=== PATIENT | female | born 1990 | race Caucasian/White ===

== ENCOUNTER → 2019-09-24 | Outpatient (REF) | payer OTHER ==
[2019-09-24 14:51] LABS: HEMATOCRIT 32.5 % (36.0-47.0); HEMOGLOBIN 9.5 g/dl (12.0-15.5); MEAN CORPUSCULAR HEMOGLOBIN 20.5 pg (27.0-33.0); MEAN CORPUSCULAR HGB CONC 29.2 g/dl (32.0-36.5); PLATELET COUNT, AUTOMATED 430 10^3/uL (150-450); RED BLOOD COUNT 4.64 10^6/uL (4.00-5.40); WHITE BLOOD COUNT 9.6 10^3/uL (4.0-10.0)
[2019-09-24 15:22] LABS: HEMOGLOBIN A1c 5.9 %
[2019-09-24 15:47] LABS: CHLAMYDIA DNA AMPLIFICATION NEGATIVE (NEGATIVE); GC DNA AMPLIFICATION NEGATIVE (NEGATIVE)
[2019-09-25 09:11] LABS: HEPATITIS B SURFACE ANTIGEN NEGATIVE (NEGATIVE); HEPATITIS C VIRUS ABY INDEX 0.1 INDEX (<0.8); HIV 1&2 SCREEN CENTAUR NEGATIVE (NEGATIVE); RUBELLA IgG QUALITATIVE IMMUNE (IMMUNE)
== END ==
LOC: M PLALAB 10:22
PROVIDERS: ATTEND Obstetrics & Gynecology
DX: O24.111 Pre-existing type 2 diabetes mellitus, in pregnancy, first trimester (principal)

== ENCOUNTER → 2019-12-11 | Outpatient (CLI) | payer OTHER ==
--- NOTE | 2019-12-11 16:39 | REP ---
REASON: anatomy. Multiple ultrasonographic images of the gravid uterus show a single living intrauterine gestation in the transverse head to the maternal left position. Doppler interrogation of the heart shows a heart rate of 152 beats per minute. The placenta is anterior and not low lying. The subjective amniotic fluid volume inner is within normal limits. The cervix measures 3.5 cm in length and is closed. Evaluation of the maternal adnexal spaces showed no abnormalities. Note was made in the left anterior uterus of a 6.6 x 5.8 x 7.4 cm sized somewhat heterogeneous solid nodule suspected of being a uterine fibroid. BPD 4.1 cm = 18 weeks 2 days HC 15.4 cm = 18 weeks 3 days AC 13.5 cm = 18 weeks 2 days FL 3.0 cm = 19 weeks 1 day The estimated weight is 255 grams, which is at the 27th percentile for a 96-linh-6-day gestational age. The anatomical structures seen as unremarkable are as follows: Thalami, cavum septum pellucidum, cerebellum, cisterna magna, upper lip, four-chamber heart, left-ventricular outflow tract, stomach, kidneys, urinary bladder, spine, upper and lower extremities. The three-vessel umbilical cord, cord insertion and right ventricular outflow tract were not optimally visualized. IMPRESSION: Signal living intrauterine gestation as described above with an estimated gestational age of 18 weeks 3 days via composite criteria and an estimated date of delivery of 05/10/2020 by today's exam. No anomalies were detected, however, I recommend a followup examination to better visualize those anatomical structures not well seen today and to re-evaluate the suspected uterine fibroid, which is close to the cord insertion on the placental side.
== END ==
LOC: M WHC 13:20
PROVIDERS: ATTEND Specialist
DX: O24.012 Pre-existing type 1 diabetes mellitus, in pregnancy, second trimester (principal); O32.2XX0 Maternal care for transverse and oblique lie, not applicable or unspecified; Z3A.18 18 weeks gestation of pregnancy

== ENCOUNTER 2019-12-29 18:15 | Emergency (ER) | payer OTHER ==
[~2019-12-29] VITALS: Ht 170.2 cm; Wt 95.2 kg
[2019-12-29 18:15] VITALS: BP 117/74
[2019-12-29] MEDS ORDERED: NOVOINJ12 SC (18:26)
[2019-12-29] MEDS ORDERED: INSUN SC (18:26)
[2019-12-29] MEDS ORDERED: ASPI81TA86 PO (18:26)
[2019-12-29] MEDS ORDERED: PROM25TA12 PO (18:26)
[2019-12-29] MEDS ORDERED: PREN29TA4 PO (18:26)
[2019-12-29] MEDS ORDERED: AMOX875T PO (19:20)
== END 2019-12-29 19:26 | disposition home or self-care (01) ==
LOC: M ED 18:15
DX: H66.41 Suppurative otitis media, unspecified, right ear (principal)

== ENCOUNTER 2020-01-05 20:44 | Emergency (ER) | payer OTHER ==
[~2020-01-05] VITALS: Ht 170.2 cm; Wt 97.6 kg
[~2020-01-05 20:44] MED LIST: AMOX875T PO; ASPI81TA85 PO; INSUN SC; NOVOINJ12 SC; PREN29TA4 PO; PROM25TA12 PO
[2020-01-05 20:45] VITALS: BP 121/63
== END 2020-01-05 21:49 | disposition left against medical advice (07) ==
LOC: M ED 20:44
DX: Z53.21 Procedure and treatment not carried out due to patient leaving prior to being seen by health care provider (principal)

== ENCOUNTER → 2020-01-08 | Outpatient (CLI) | payer OTHER ==
[~2020-01-08] MED LIST changes: -ASPI81TA85 PO; +ASPI81TA86 PO; +HUMU70IN SC; +INSURSD SC; +NOVOINJ13 SC; +ZOFR4TAB16 PO
--- NOTE | 2020-01-08 15:40 | REP ---
REASON: Followup. COMPARISON: 12/11/2019 which failed to optimally visualize three-vessel cord, cord insertion, right ventricular outflow tract for which this examination was performed in followup. Multiple ultrasonographic images of the gravid uterus show a single living intrauterine gestation in a breech presentation. Doppler interrogation of the heart shows a heart rate of 142 beats per minute. The placenta is anterior and not low-lying. Subjective amniotic fluid volume is within normal limits. The cervix measures 4.2 cm in length and is closed. Evaluation of the maternal adnexal spaces show no abnormalities. Three-vessel umbilical cord, cord insertion, and right ventricular outflow tract were seen to be within normal limits today. BPD 5 cm = 21 weeks 1 day HC 20.6 cm = 22 weeks 5 days AC 18.0 cm = 22 weeks 6 days FL 3.0 cm = 22 weeks 5 days The estimated weight is 527 grams which is at the 27th percentile for a 85-nfoo-9-day gestational age. IMPRESSION: Single living intrauterine gestation as described above with an estimated gestational age of 22 weeks 2 days via composite criteria and estimated date of delivery of 05/11/2020 by today's exam. No anomalies were detected.
== END ==
LOC: M WHC 09:21
PROVIDERS: ATTEND Obstetrics & Gynecology
DX: Z34.82 Encounter for supervision of other normal pregnancy, second trimester (principal); Z3A.22 22 weeks gestation of pregnancy

== ENCOUNTER → 2020-01-25 | Outpatient (REF) | payer OTHER ==
[2020-02-21 20:25] LABS: HEMATOCRIT 27.6 % (36.0-47.0); HEMOGLOBIN 8.1 g/dl (12.0-15.5); MEAN CORPUSCULAR HEMOGLOBIN 21.4 pg (27.0-33.0); MEAN CORPUSCULAR HGB CONC 29.3 g/dl (32.0-36.5); PLATELET COUNT, AUTOMATED 442 10^3/uL (150-450); RED BLOOD COUNT 3.78 10^6/uL (4.00-5.40); WHITE BLOOD COUNT 9.2 10^3/uL (4.0-10.0)
[2020-03-07 12:00] LABS: HEMOGLOBIN A1c 6.1 %
== END ==
LOC: M SFHCWAGY 12:50
PROVIDERS: ATTEND Specialist
DX: Z34.80 Encounter for supervision of other normal pregnancy, unspecified trimester (principal); Z3A.00 Weeks of gestation of pregnancy not specified
CPT/HCPCS: 36415; 83036; 85027; 86850; 86900; 86901; G0463

== ENCOUNTER → 2020-02-19 | Outpatient (CLI) | payer OTHER ==
[2020-02-19 18:06] LABS: HEMOGLOBIN A1c 6.4 %
== END ==
LOC: M PLALAB 13:12
PROVIDERS: ATTEND Obstetrics & Gynecology
DX: O24.912 Unspecified diabetes mellitus in pregnancy, second trimester (principal)

== ENCOUNTER → 2020-02-23 | Outpatient (CLI) | payer OTHER ==
--- NOTE | 2020-03-22 08:16 | REP ---
LIMITED OBSTETRICAL ULTRASOUND CLINICAL: Growth evaluation and biophysical profile. COMPARISON: 01/08/2020. FINDINGS: Ultrasound examination demonstrates a single live intrauterine in cephalic presentation. Placenta noted anteriorly and grade 2 without evidence for placenta previa or abruption. Amniotic fluid volume is upper limits of normal. HERMILO equals 17.7 cm. Cervix measures 3.3 cm in length and appears closed. Anterior intramural fibroid is identified measuring 7.4 x 7.1 x 8.6 cm. heart rate 144 beats per minute. Age by current biometrical measurements 28 weeks 5 days with estimated date of delivery 05/12/2020. Estimated weight 1234 grams (6th percentile). Biophysical profile score 8 out of 8. IMPRESSION: * Single live intrauterine in cephalic presentation. Biophysical profile score equals 8 out of 8. * Anterior intramural fibroid measuring 8.6 cm in maximal diameter. * Amniotic fluid volume is upper limits of normal. MTDD
== END ==
LOC: M WHC 13:02
PROVIDERS: ATTEND Obstetrics & Gynecology
DX: O24.419 Gestational diabetes mellitus in pregnancy, unspecified control (principal)

== ENCOUNTER → 2020-03-03 | Outpatient (CLI) | payer OTHER ==
--- NOTE | 2020-03-23 14:09 | REP ---
BIOPHYSICAL PROFILE ULTRASOUND CLINICAL: well being. TECHNIQUE: Transabdominal obstetrical ultrasound with color Doppler evaluation. FINDINGS: Ultrasound examination demonstrates a single live advanced gestation in cephalic presentation. motion was identified by technologist. Placenta is noted anteriorly and grade 1 without evidence for placenta previa or abruption. Amniotic fluid volume is normal. Cervix measures 4.1 cm in length and appears closed. heart rate 163 beats per minute. HERMILO 13.3 cm. Biophysical profile score equals 8 out of 8. Umbilical cord S/D ratio equal 2.44. IMPRESSION: * Single live intrauterine in cephalic presentation. Biophysical profile score equals 8 out of 8. Amniotic fluid volume is normal. * Anterior uterine fibroid is again noted and measures 9.8 x 9.6 x 7.3 cm. MTDD
== END ==
LOC: M WHC 13:10
PROVIDERS: ATTEND Specialist
DX: O24.119 Pre-existing type 2 diabetes mellitus, in pregnancy, unspecified trimester (principal); Z3A.00 Weeks of gestation of pregnancy not specified; O34.10 Maternal care for benign tumor of corpus uteri, unspecified trimester; D25.9 Leiomyoma of uterus, unspecified

== ENCOUNTER → 2020-03-08 | Outpatient (CLI) | payer OTHER ==
--- NOTE | 2020-03-23 14:11 | REP ---
LIMITED OBSTETRICAL ULTRASOUND FOR BIOPHYSICAL PROFILE AND WELLBEING COMPARISON: 03/03/2020 TECHNIQUE: Transabdominal obstetrical ultrasound with color Doppler evaluation. FINDINGS: Ultrasound examination demonstrates single live advanced gestation in cephalic presentation. motion was identified by the technologist. Placenta is noted anteriorly and grade 2 without evidence for placenta previa or abruption. Amniotic fluid volume is normal. Cervix measures 4.3 cm in length. Gestational age by last menstrual period (LMP) 31 weeks 6 days with estimated date of delivery 05/04/2020. Gestational age by current measurements 31 weeks 2 days with estimated date of delivery 05/08/2020. heart rate equals 147 beats per minute. Estimated weight 1756 grams (39th percentile). Biophysical profile score equals 8/8. Amniotic fluid index (HERMILO) equals 16.6 cm (8.7 23.9). Umbilical artery one S/D ratio equals 4.07 (1.88 3.94) Umbilical artery two S/D ratio 5.04 (1.88 3.94). IMPRESSION: * Single live advanced gestation in cephalic presentation demonstrating appropriate estimated weight and growth. * Biophysical profile score is normal. Amniotic fluid volume is normal. * Umbilical cord S/D ratios moderately elevated. MTDD
== END ==
LOC: M WHC 12:39
PROVIDERS: ATTEND Specialist
DX: O24.113 Pre-existing type 2 diabetes mellitus, in pregnancy, third trimester (principal); Z3A.31 31 weeks gestation of pregnancy

== ENCOUNTER → 2020-03-15 | Outpatient (CLI) | payer OTHER ==
--- NOTE | 2020-03-23 14:13 | REP ---
BIOPHYSICAL PROFILE CLINICAL: wellbeing. COMPARISON: 03/08/2020. TECHNIQUE: Real-time ultrasound examination using curved array transducer with color Doppler evaluation. FINDINGS: Ultrasound examination demonstrates a single live advanced gestation in cephalic presentation. motion identified by the technologist. Placenta is noted anteriorly and grade 2 without evidence for placenta previa or abruption. Amniotic fluid volume is normal, amniotic fluid index (HERMILO) equals 14.3 cm. Cervix measures 3.2 cm in length and appears closed. Gestational age by first ultrasound 32 weeks 2 days with estimated date of delivery 05/08/2020. heart rate 133 beats per minute. Biophysical profile score 8/8. Umbilical cord S/D ratio 2.8. IMPRESSION: Single live advanced gestation in cephalic presentation. Biophysical profile score equals 8/8. Amniotic fluid volume is normal. MTDD
== END ==
LOC: M WHC 12:40
PROVIDERS: ATTEND Specialist
DX: O24.113 Pre-existing type 2 diabetes mellitus, in pregnancy, third trimester (principal); Z3A.32 32 weeks gestation of pregnancy

== ENCOUNTER 2020-03-21 08:05 | Outpatient (CLI) | payer OTHER ==
[~2020-03-21] VITALS: Ht 170.2 cm; Wt 102.3 kg
[~2020-03-21 08:05] MED LIST changes: -HUMU70IN SC; -INSURSD SC; -NOVOINJ13 SC; -ZOFR4TAB16 PO
[2020-03-21] MEDS ORDERED: HUMU70IN SC (08:31)
[2020-03-21] MEDS ORDERED: ZOFR4TAB16 PO (08:31)
[2020-03-21] MEDS ORDERED: INSURSD SC (08:31)
[2020-03-21] MEDS ORDERED: HumuLIN R (REGULAR) INSULIN (NovoLIN R) **100U/ML** PER UNIT SC ONE (09:15)
[2020-03-21] MEDS ORDERED: HumuLIN N INSULIN (NovoLIN N) PER UNIT SC ONE (09:15)
[2020-03-21] MEDS ORDERED: NOVOINJ13 SC (09:25)
[2020-03-21 10:17] LABS: APPEARANCE, URINE CLOUDY (CLEAR); BACTERIA, URINE AUTO 1+ (NEGATIVE); BILIRUBIN, URINE AUTO NEGATIVE (NEGATIVE); BLOOD, URINE BLOOD NEGATIVE (NEGATIVE); COLOR, URINE YELLOW (YELLOW); GLUCOSE, URINE (UA) AUTO NEGATIVE (NEGATIVE); KETONE, URINE AUTO NEGATIVE (NEGATIVE); LEUKOCYTE ESTERASE, URINE AUTO NEGATIVE (NEGATIVE); MUCUS, URINE SMALL (NEGATIVE); NITRITE, URINE AUTO NEGATIVE (NEGATIVE); PROTEIN, URINE AUTO NEGATIVE (NEGATIVE); RBC, URINE AUTO 1 /HPF (0-3); SPECIFIC GRAVITY URINE AUTO 1.012 (1.002-1.035); SQUAMOUS EPITHELIAL CELL UR AU 38 /HPF (0-6); UROBILINOGEN, URINE AUTO 0.2 mg/dL (0.0-2.0); WBC, URINE AUTO 1 /HPF (0-3)
--- NOTE | 2020-03-21 12:20 | IPNPDOC ---
Text Note Date of Service The patient was seen on 03/21/20. NOTE Subjective: Roberta is a 29-year-old female who is a /0//4 at 34.5 weeks gestation with an MILKA of 04/27/20. There is no record to review. She has been a patient of [facility]. Her has been complicated by Pregestational diabetes controlled with insulin. She presented to L&D today with complaints of contractions that were every 2 minutes at home. She reported that they have decreased in frequency since she has been in L&D but when she does feel them they are uncomfortable but are less uncomfortable compared to this morning. She did not eat breakfast this morning or take her morning insulin. She reports active movement. She denies leaking of fluid or vaginal bleeding. OB history: 04/27/13: at 41.4 weeks gestation of male weighting 9 lbs 10 oz complicated by a hemorrhage with a blood transfusion 07/15/14: of female at 39.1 weeks gestation weighting 9 lbs 2 oz complicated by A1GDM 08/03/16: of female at 39.1 weeks gestation weighting 7 lbs 11 oz-no complications 01/18/18: of male at 37 weeks gestation weighting 8 lbs 9 oz-A2GDM insulin dependent Medical history: Type I diabetes: insulin controlled Surgical history: wisdom teeth Family history: cancer (melanoma) Social history: , former smoker-quit with this , denies alcohol or drug use during , history of chlamydia (2010) and history of abnormal pap in 2011 Objective: VS and labs: see below. FHR: 130, moderate variability, positive accelerations, no decelerations. Contractions 6-13 minutes. SVE: FT/thick/high, no show, anterior, soft. No change to cervical exam after 2+ hours. A+O x3. Respiratory: regular rate and no use of accessory muscles. Abdomen: Gravid, some contractions palpate mild and abdomen is soft between. Cephalic presentation not ed with SVE. Assessment: IUP at 34.5 weeks gestation, Type I DM on insulin, not in active labor, Category I FHR tracing Plan: Patient discharged to home. Reviewed access to care, kick count, labor signs, and danger signs to report. She is to come to appointment that is scheduled tomorrow with her BPP and growth. She is to call with any changes. VS,Fishbone, I+O VS, Fishbone, I+O Vital signs: BP: 114/76; HR: 95; RR: 18; Temperature: 97.5 Fasting blood sugar: 90 Item Value Date Time Urine Color YELLOW 03/21/20954 Urine Appearance CLOUDY H 03/21/20954 Urine pH 7.0 UNITS 03/21/20954 Urine Specific [place] 1.012 03/21/20 09 Urine Protein NEGATIVE mg/dL 03/21/20954 Urine Glucose (Auto)(UA) NEGATIVE mg/dL 03/21/20954 Urine Ketones (Auto) NEGATIVE mg/dL 03/21/20954 Urine Blood NEGATIVE 03/21/20954 Urine Nitrite NEGATIVE 03/21/20954 Urine Bilirubin NEGATIVE 03/21/20954 Urine Urobilinogen 0.2 mg/dL 03/21/20954 Urine Leukocyte Esterase (Auto) NEGATIVE 03/21/20954 Urine WBC (Auto) 1 /HPF 03/21/20954 Urine RBC (Auto) 1 /HPF 03/21/20954 Urine Hyaline Casts (Auto) 0 /LPF 03/21/20 09 Urine Bacteria (Auto) 1+ H 03/21/20954 Urine Squamous Epithelial Cells 38 /HPF 03/21/20954 Urine Mucus (Auto) SMALL 03/21/20 0955 NAE LUNA CNM Mar 21, 2020 12:20
== END 2020-03-21 11:50 | disposition home or self-care (01) ==
LOC: M LDO 08:05
PROVIDERS: ATTEND Advanced Practice Midwife
DX: O24.013 Pre-existing type 1 diabetes mellitus, in pregnancy, third trimester (principal); O47.03 False labor before 37 completed weeks of gestation, third trimester; Z3A.34 34 weeks gestation of pregnancy
CPT/HCPCS: 59025; 81001; 96372; G0378; G0463

== ENCOUNTER → 2020-03-22 | Outpatient (CLI) | payer OTHER ==
[~2020-03-22] MED LIST changes: +HUMU70IN SC; +INSURSD SC; +NOVOINJ13 SC; +ZOFR4TAB16 PO
--- NOTE | 2020-03-30 11:44 | REP ---
OB ULTRASOUND BIOPHYSICAL PROFILE HISTORY: Diabetes. TECHNIQUE: Real-time sonographic evaluation of the gravid uterus is performed. FINDINGS: There is a single living intrauterine gestation. Estimated gestational age based on last menstrual period (LMP) is reportedly 34 weeks 6 days, estimated date of confinement (EDC) 04/27/2020, and based on first ultrasound 32 weeks 4 days estimated date of confinement (EDC) 05/13/2020. position is cephalic. Placenta is anterior and grade 2 with no previa or abruption. There is a mid placental cord insertion. heart rate 142 beats per minute. Amniotic fluid within normal limits. Amniotic fluid index (HERMILO) 14.2 is within normal range of 8.2 to 24.6. Biophysical profile score is 8/8. Cervix is closed and measures 3.6 cm in length. S/D ratio in the umbilical artery near the placental insertion is 2.3, mid aspect 2.5, and near the fetus 2.3. Note is again made of an anterior fibroid 7.9 x 6.9 x 9.2 cm. MTDD
== END ==
LOC: M WHC 12:59
PROVIDERS: ATTEND Specialist
DX: O24.119 Pre-existing type 2 diabetes mellitus, in pregnancy, unspecified trimester (principal)

== ENCOUNTER → 2020-03-30 | Outpatient (CLI) | payer OTHER ==
--- NOTE | 2020-04-04 15:12 | REP ---
OBSTETRIC SONOGRAPHY HISTORY: growth study. Biophysical profile cord Doppler. FINDINGS: Scanning through the gravid uterus demonstrates a single live intrauterine gestation in a cephalic lie. The placenta is anterior grade 2 without evidence of previa. Amniotic fluid is subjectively normal. Amniotic fluid index (HERMILO) is normal at 14.1 cm. heart rate is recorded at 133 beats per minute. Biophysical profile score is 8 out of a possible 8. S/D ratio in the umbilical cord artery by Doppler is normal at 3.26. Closed cervical length is 3.6 cm viewed transabdominally. An anterior fibroid is observed 10.4 cm in greatest diameter. Nuchal cord was visualized. BIOMETRY CHART: BPD 8.4 cm 33 weeks 5 days Head circumference 32.1 cm 36 weeks 1 day Abdominal circumference 32.2 cm 36 weeks 1 day Femur length 6.6 cm 34 weeks 0 days Humeral length 5.7 cm 32 weeks 6 days AC/HC ratio 1.00 Normal Cephalic index 0.71 Normal Estimated weight 2647 grams, 5 pounds 13 ounces, 69th percentile for 34 weeks 3 days. IMPRESSION: Viable single intrauterine gestation at 34 weeks 4 days by todays composite sonographic criteria. Expected gestational age estimate based on prior sonography is 33 weeks 5 days. Estimated date of delivery (MILKA) by prior sonography 05/13/2020. MTDD
== END ==
LOC: M WHC 12:29
PROVIDERS: ATTEND Specialist
DX: O24.113 Pre-existing type 2 diabetes mellitus, in pregnancy, third trimester (principal); Z3A.34 34 weeks gestation of pregnancy
CPT/HCPCS: 59025; 76815; 76818; 76820; G0463

== ENCOUNTER → 2020-03-31 | Outpatient (REF) | payer OTHER | LOC: M SFHCWAGY 13:31 | PROVIDERS: ATTEND Specialist | DX: Z34.83 Encounter for supervision of other normal pregnancy, third trimester (principal) ==

== ENCOUNTER 2020-04-03 12:59 | Outpatient (CLI) | payer OTHER ==
[~2020-04-03] VITALS: Ht 170.2 cm; Wt 103.6 kg
[2020-04-03 13:32] VITALS: BP 128/77
== END 2020-04-03 14:12 | disposition home or self-care (01) ==
LOC: M WHC 12:59 → M LDO 12:59
PROVIDERS: ATTEND Specialist
DX: O47.03 False labor before 37 completed weeks of gestation, third trimester (principal); Z3A.36 36 weeks gestation of pregnancy
CPT/HCPCS: 59025; G0378; G0463

== ENCOUNTER → 2020-04-05 | Outpatient (CLI) | payer OTHER ==
--- NOTE | 2020-04-08 13:24 | REP ---
BIOPHYSICAL ULTRASOUND CLINICAL: wellbeing. TECHNIQUE: Transabdominal obstetrical ultrasound with color Doppler evaluation. FINDINGS: Ultrasound examination demonstrates a single live advanced gestation in cephalic presentation. motion identified by technologist. Placenta noted anteriorly and grade 2 without placenta previa or abruption. Amniotic fluid volume is normal (HERMILO equals 15.5 cm). Gestational age by first ultrasound 35 weeks 2 days with estimated date of delivery 05/08/2020. heart rate 136 beats per minute. Biophysical profile score 8 out of 8. Cervix measures 3.3 cm in length and appears closed. Anterior intramural fibroid again noted measuring 9.6 cm in maximal diameter. IMPRESSION: Biophysical profile score 8 out of 8. MTDD
== END ==
LOC: M WHC 12:35
PROVIDERS: ATTEND Specialist
DX: O24.113 Pre-existing type 2 diabetes mellitus, in pregnancy, third trimester (principal); Z3A.35 35 weeks gestation of pregnancy
CPT/HCPCS: 59025; 76818; 76820; G0463

== ENCOUNTER 2020-04-07 07:32 | Inpatient (IN) | payer OTHER ==
[2020-04-07] VITALS (56 sets, daily range): BP systolic 89–191; BP diastolic 51–114
[~2020-04-07] VITALS: Ht 170.2 cm; Wt 102.4 kg
[2020-04-07 08:58] LABS: HEMATOCRIT 25.4 % (36.0-47.0); HEMOGLOBIN 7.2 g/dl (12.0-15.5); MEAN CORPUSCULAR HGB CONC 28.3 g/dl (32.0-36.5); MEAN CORPUSCULAR VOLUME 67.2 fl (80.0-96.0); PLATELET COUNT, AUTOMATED 297 10^3/uL (150-450); RED BLOOD COUNT 3.78 10^6/uL (4.00-5.40); WHITE BLOOD COUNT 8.8 10^3/uL (4.0-10.0)
[2020-04-07] MEDS: miSOPROStol 50 MCG 1/2 TAB (S0191) SL SCH ×2 (09:01→13:34)
[2020-04-07 09:45] LABS: GLUCOSE,RANDOM 85 MG/DL (LESS THAN 200)
--- NOTE | 2020-04-07 10:15 | HPEPDOC ---
Obstetrical History & Physical General Date of Admission Apr 07, 2020 at 07:32 History of Present Illness 29 yo ,0,13,4 female at 37 1/7 weeks gestation by LMP c/w 7 weeks ultrasound (EDC=04/27/2020) presents for labor induction. The indication for delivery <39 weeks is Type II diabetes requiring insulin. She denies regular contractions or vaginal bleeding. Information Provided By: Patient Age: 29 : 17 Term: 4 Pre-term: 0 Abortions: 13 Livin Care Care: Good Care Dating Final EDC for Daily Update: Apr 27, 2020 Final EDC by: LMP, 1st trimester (US) Antepartum Course Diagnos(e)s type II diabetes Past Medical History Past Medical History Medical History x 4 h/o chlamydia, Trichomonas 2011 Family History Significant Family History: No pertinent family hx Social History Marital Status: Family situation: Spouse/partner home Psychosocial History: No pertinent psych hx * Smoker: non-smoker Alcohol: Denies Drugs: denies Abuse Violence Screening Have you been hit/kicked/slapp: No Have you been sexually assault: No Allergies Coded Allergies: No Known Allergies (Unverified , 03/21/20) Medications Scheduled Insulin Human Regular (Humulin R) 100 Unit/1 Ml Vial, 16 UNITS SC BID Insulin NPH Human Isophane (Novolin N) 100 Unit/1 Ml Vial, 22 UNITS SC BID Prenat 115/Iron Fum/Folic/Dss ( 19 Tablet) 1 Each Tablet, 1 TAB PO DAILY Physical Examination Physical Examination GENERAL: Alert and oriented times three. BREAST: . ABDOMEN: Gravid and non-tender to touch. FETUS: Is vertex (VTX) by sterile vaginal examination (SVE), fetus is vertex (VTX) by Bryn. HEART RATE: Regular rate and rhythm. LUNGS: Clear to auscultation (CTA). EXTREMITIES: No edema. No clonus. Deep tendon reflexes (DTRs) + . Vital Signs/I&O Vital Signs Date Time Temp Pulse Resp B/P (MAP) Pulse Ox O2 Delivery O2 Flow Rate FiO2 04/07/20 09:10 78 146/94 (111) 04/07/20 07:51 96.0 18 Laboratory Data 24H LABS Laboratory Tests 2 04/07/20 08:01: Serology Scanned Report Hepatitis B Testing 10/15/20 08:50: Nucleated Red Blood Cells % (auto) 0.0, Random Glucose 85 CBC/BMP Laboratory Tests 04/07/20 08:50 Pertinent Laboratoy Data HIV: Negative Hepatitis B: Negative Hepatitis C: Negative Rapid Plasma Reagin: Immune Rubella: Nonreactive Varicella: Nonreactive Group B Streptococcus: Negative Vaginal Examination Dilation: 2cm Effacement: 50% Station: -2 Cervical Consistency: Medium Cervical Position: Posterior Presentation: Cephalic presentation Assessment Variability: Moderate Accelerations: Positive Decelerations: None Tocometer Frequency: irregular Duration: less than 60 seconds Assessment/Plan Assessment 29 yo G17 P 4, 0, 13,4 at 37 1/7 weeks gestation presents for labor induction due to Type II diabetes Plan Admit and orient.. Group B Streptococcus (GBS) negative. Labs and intravenous (IV) per unit protocol. Counseled on Pitocin and induction of labor (IOL). Lactated Ringers (LR): Bolus mL, then at mL/hr. Anticipate [normal spontaneous delivery ()]. C-S as appropriate. Labor and Delivery Counseling 29 yo G17 P 4, 0, 13,4 at 37 1/7 weeks gestation presents for labor induction due to Type II diabetes TAVO REGAN MD Apr 07, 2020 10:15
[2020-04-07] MEDS: ACETAMINOPHEN 500 MG TAB PO PRN ×2 (13:35→19:59)
[2020-04-07] MEDS ORDERED: FENTANYL 2MCG/ML ROPIVACAINE 0.2% IN 0.9% NACL 100ML IVBAG As Ordered ONE (17:47)
[2020-04-07] MEDS ORDERED: EPIDURAL/PCA KEYS XX PRN (18:30)
[2020-04-07] MEDS ORDERED: LACTATED RINGER'S 1000 ML IV PRN (18:30)
[2020-04-07] MEDS ORDERED: NALOXONE INJ 0.4MG/1ML VIAL (J2310 PER 1MG) IV PRN (18:30)
[2020-04-07] MEDS ORDERED: FENTANYL/ROPIVACAINE/NACL BAG 100 ML EPIDURAL SCH (18:30)
[2020-04-07] MEDS ORDERED: ONDANSETRON 4MG/2ML VIAL IV PRN ×2 (18:30→21:30)
[2020-04-07] MEDS ORDERED: REFRIGERATOR IV KEYS XX PRN (18:30)
[2020-04-07] MEDS ORDERED: ePHEDrine SULFATE 25 MG/5 ML(5MG/ML) SYRINGE IV PRN (18:30)
[2020-04-07] MEDS ORDERED: EPIDURAL COMMENT XX SCH (18:30)
[2020-04-07] MEDS ORDERED: diphenhydrAMINE 50MG/ML VIAL (J1200) IV PRN (18:30)
[2020-04-07] MEDS ORDERED: OXYTOCIN 30 UNITS IN 0.9% NaCl 500ML IV BAG (J2590) As Ordered ONE (20:42)
[2020-04-07] MEDS ORDERED: METHYLERGONOVINE MALEATE 0.2 MG TAB PO PRN (21:30)
[2020-04-07] MEDS ORDERED: DOCUSATE SODIUM 100 MG CAP PO PRN (21:30)
[2020-04-07] MEDS ORDERED: ACETAMINOPHEN TAB 650MG DOSE (2X325MG) PO PRN (21:30)
[2020-04-07] MEDS ORDERED: MEASLES,MUMPS,RUBELLA VACCINE INJ (MMR-II) (90707) SC SCH (21:30)
[2020-04-07] MEDS ORDERED: OXYTOCIN DRIP 30 UNITS in IV 1 EA IV ONE (21:30)
[2020-04-07] MEDS ORDERED: IBUPROFEN 800 MG TAB PO PRN (21:30)
[2020-04-07] MEDS ORDERED: RHOGAM 300 MCG (1500 IU) INJ (J2790) IM SCH (21:30)
[2020-04-07] MEDS ORDERED: ACETAMINOPHEN 500 MG TAB PO PRN (21:30)
[2020-04-07] MEDS ORDERED: IBUPROFEN 600MG TAB PO PRN (21:30)
[2020-04-07] MEDS ORDERED: DIBUCAINE 1% OINTMENT 30GM TOP PRN (21:30)
--- NOTE | 2020-04-07 21:35 | DNPDOC ---
[facility] Delivery Note Delivery Note DATE OF DELIVERY: April 07, 2020 PREDELIVERY DIAGNOSIS: 37-1/7 weeks' gestation, Type II diabetes on insulin, induction POST DELIVERY DIAGNOSIS: Delivered. PROCEDURE: Spontaneous vaginal delivery PRESIDENT AND CHIEF OPERATING OFFICER: Dr. Tavo Regan MD ANESTHESIA: epidural. ESTIMATED BLOOD LOSS: 300 mL. FINDINGS: 5 pound 13 ounce female , Score 8/9, nuchal cord times 1 DELIVERY SUMMARY: Patient is a 29-year-old 18 now para 5-0-13-5 who was admitted to labor and delivery for induction. She received two doses of Misoprostol. After a short second stage of 5 minutes she had spontaneous vaginal delivery of a 5 lb 13 oz. female under epidural. Nuchal cord x 1 reduced manually. Shoulders delivered with ease. Placenta delivered spontaneously and appeared intact. No lacerations. Sponge count correct. TAVO REGAN MD Apr 07, 2020 21:35
[2020-04-07] MEDS ORDERED: NS 1,000 ML IV SCH ×2 (22:54→23:12)
[2020-04-07] MEDS ORDERED: miSOPROStol 200 MCG TAB (S0191) As Ordered ONE (23:11)
--- NOTE | 2020-04-07 23:21 | IPNPDOC ---
Progress Note Date of Service: Apr 07, 2020 Progress Note SUBJECT: Pt is a 29-year-old status post uncomplicated spontaneous vaginal delivery this evening. She began to pass small clots in the immediate post period. She felt light-headed. She felt nausea. her starting hemoglobin prior to delivery was 7.2 g/dl. OBJECTIVE: VITAL SIGNS: Within normal limits, afebrile. Alert and oriented times three, pale in appearance Breath sounds clear to auscultation. Heart rate: Regular rate and rhythm, no murmurs, rubs or gallops. Abdomen: Fundus firm at U-2. Soft, NTTP. Lower uterine segment expressed for numerous clots. ASSESSMENT: Post hemorrhage with anemia, both acute and chronic PLAN: Pt given Cytotec 800 mcg's per rectum Bolus IVF Pitocin IV Start blood transfusion (T+C for total of 4 units) VS, I&O, 24H, Fishbone Vital Signs/I&O Vital Signs Date Time Temp Pulse Resp B/P (MAP) Pulse Ox O2 Delivery O2 Flow Rate FiO2 04/07/20 22:06 87 125/81 (96) 04/07/20 21:22 97.6 04/07/20 16:23 20 04/07/20 16:23 Room Air Laboratory Data 24H LABS Laboratory Tests 2 04/07/20 08:01: Serology Scanned Report Hepatitis B Testing 04/07/20 08:50: Nucleated Red Blood Cells % (auto) 0.0, Random Glucose 85, Syphilis Serology NONREACTIVE CBC/BMP Laboratory Tests 04/07/20 08:50 TAVO REGAN MD Apr 07, 2020 23:21
[2020-04-08] VITALS (57 sets, daily range): BP systolic 77–174; BP diastolic 49–99
[2020-04-08] MEDS ORDERED: MORPHINE 4 MG/ML 1ML VIAL/SYRINGE (J2270) As Ordered ONE (02:34)
[2020-04-08] MEDS ORDERED: MORPHINE 4 MG/ML 1ML VIAL/SYRINGE (J2270) IV ONE (02:45)
[2020-04-08 03:04] LABS: HEMATOCRIT 28.6 % (36.0-47.0); HEMOGLOBIN 8.8 g/dl (12.0-15.5); MEAN CORPUSCULAR HEMOGLOBIN 23.4 pg (27.0-33.0); MEAN CORPUSCULAR HGB CONC 30.8 g/dl (32.0-36.5); MEAN CORPUSCULAR VOLUME 76.1 fl (80.0-96.0); PLATELET COUNT, AUTOMATED 284 10^3/uL (150-450); RED BLOOD COUNT 3.76 10^6/uL (4.00-5.40); WHITE BLOOD COUNT 14.5 10^3/uL (4.0-10.0)
[2020-04-08 03:17] LABS: INR 1.12; PARTIAL THROMBOPLASTIN TIME 26.4 SECONDS (24.2-38.5); PROTHROMBIN TIME 14.6 SECONDS (12.5-14.3)
[2020-04-08] MEDS ORDERED: ceFAZolin 2 GM/D5W 50 ML IV BAG (J0690 PER 500MG) As Ordered ONE (03:23)
[2020-04-08] MEDS ORDERED: fentaNYL 100 MCG/2 ML INJECTION (J3010) As Ordered ONE (03:36)
[2020-04-08] MEDS ORDERED: propofoL 200 MG/20 ML VIAL As Ordered ONE (03:36)
[2020-04-08] MEDS ORDERED: ROCURONIUM BROMIDE 50 MG/5 ML VIAL As Ordered ONE (03:36)
[2020-04-08] MEDS ORDERED: LIDOCAINE 2% 100MG/5ML SDV (FOR ANES.) As Ordered ONE (03:36)
[2020-04-08] MEDS ORDERED: MIDAZOLAM INJ 2MG/2ML VIAL (J2250 PER 1MG) As Ordered ONE (03:36)
[2020-04-08] MEDS ORDERED: dexameTHASONE 4 MG/ML 1ML VIAL (J1100 PER 1MG) As Ordered ONE (03:37)
[2020-04-08] MEDS ORDERED: PHENYLephrine HCL 500 MCG/5 ML (100MCG/ML) SYRINGE (J2370) As Ordered ONE (03:37)
[2020-04-08] MEDS ORDERED: ONDANSETRON 4MG/2ML VIAL As Ordered ONE (03:37)
[2020-04-08] MEDS ORDERED: ACETAMINOPHEN 1000MG 100ML IV BTL (OFIRMEV) (J0131 PER 10MG) As Ordered ONE (03:47)
[2020-04-08] MEDS ORDERED: SUGAMMADEX SODIUM 500 MG/5 ML VIAL (BRIDION) As Ordered ONE (03:49)
[2020-04-08] MEDS ORDERED: HYDROmorphone HCL 2 MG/ML 1ML VIAL (J1170) As Ordered ONE (04:02)
--- NOTE | 2020-04-08 04:21 | IPNPDOC ---
Progress Note Date of Service: Apr 08, 2020 Progress Note [address] Dr. Silverman intraoperatively for emergent assistance for hysterectomy due to hemorrhage with very large submucosal intracavitary fibroid. Please see Dr. Silverman's note for details of surgery. VS, I&O, 24H, Fishbone Vital Signs/I&O Vital Signs Date Time Temp Pulse Resp B/P (MAP) Pulse Ox O2 Delivery O2 Flow Rate FiO2 04/08/20 01:38 97.2 101 16 133/83 100 Room Air I&O- Last 24 Hours up to 6 AM 04/08/20 06:00 Intake Total 4000 ml Output Total 4658 ml Balance -658 ml Laboratory Data 24H LABS Laboratory Tests 2 04/07/20 08:01: Serology Scanned Report Hepatitis B Testing 04/07/20 08:50: Nucleated Red Blood Cells % (auto) 0.0, Random Glucose 85, Syphilis Serology NONREACTIVE 04/08/20 02:59: Nucleated Red Blood Cells % (auto) 0.0, Prothrombin Time 14.6H, Prothromb Time International Ratio 1.12, Activated Partial Thromboplast Time 26.4, Fibrinogen 428 CBC/BMP Laboratory Tests 04/07/20 08:50 04/08/20 02:59 PAULINE RAMIREZ DO Apr 08, 2020 04:21
[2020-04-08] MEDS ORDERED: METOCLOPRAMIDE INJ 10MG/2ML VIAL (J2765 PER 1) IV PRN (04:45)
[2020-04-08] MEDS ORDERED: fentaNYL 100 MCG/2 ML INJECTION (J3010) IV PRN (04:45)
[2020-04-08] MEDS ORDERED: ONDANSETRON 4MG/2ML VIAL IV PRN (04:45)
[2020-04-08] MEDS ORDERED: LR 1,000 ML IV SCH (04:45)
[2020-04-08] MEDS ORDERED: HYDROMORPHONE HCL 0.5 MG/ 0.5 ML SYRINGE (J1170 PER 1) IV PRN (04:45)
--- NOTE | 2020-04-08 04:57 | IPNPDOC ---
Progress Note Date of Service: Apr 08, 2020 Progress Note 29 yo s/p at 2104 on 04/07/2020 noted to have persistent vaginal bleeding. She pass clots with fundal massage. She previously received 4 units of PRBC's. Her estimated blood loss after the first episode of bleeding was 1090 ml. Her starting hemoglobin on admission was 7.2 g/dl. Her uterus has been firm the entire time. She received multiple uterotonic agents previously. I attempted to place a Bakri balloon at the bedside. Upon exam a firm mass was noted in the uterus. It was thought be be her known, large uterine fibroid. At that point, it was decided to proceed to the OR for surgical management. We asked for 4 more units of PRBC's to be prepared. Consent signed. Anesthesia notified. In addition to previous blood loss, she has lost an additional 6278-9763 ml of blood. VS, I&O, 24H, Fishbone Vital Signs/I&O Vital Signs Date Time Temp Pulse Resp B/P (MAP) Pulse Ox O2 Delivery O2 Flow Rate FiO2 04/08/20 04:39 92 18 117/81 (93) 94 Room Air 04/08/20 04:24 96.8 10 I&O- Last 24 Hours up to 6 AM 04/08/20 06:01 Intake Total 7200 ml Output Total 4658 ml Balance 2542 ml Laboratory Data 24H LABS Laboratory Tests 2 04/07/20 08:01: Serology Scanned Report Hepatitis B Testing 04/07/20 08:50: Nucleated Red Blood Cells % (auto) 0.0, Random Glucose 85, Syphilis Serology NONREACTIVE 04/08/20 02:59: Nucleated Red Blood Cells % (auto) 0.0, Prothrombin Time 14.6H, Prothromb Time International Ratio 1.12, Activated Partial Thromboplast Time 26.4, Fibrinogen 428 CBC/BMP Laboratory Tests 04/07/20 08:50 04/08/20 02:59 TAVO REGAN MD Apr 08, 2020 04:57
[2020-04-08] MEDS ORDERED: miSOPROStol 200 MCG TAB (S0191) As Ordered ONE ×2 (04:59→08:09)
[2020-04-08] MEDS ORDERED: KETOROLAC 30 MG/ML 1ML VIAL IV SCH (05:00)
--- NOTE | 2020-04-08 05:10 | ROOPDOC ---
[facility] Report Of Operation Report of Operation DATE OF PROCEDURE: 04/08/20 PREPROCEDURE DIAGNOSES: hemorrhage, intracavitary uterine fibroid. POSTPROCEDURE DIAGNOSES: same. PROCEDURE: Laparotomy, supracervical hysterectomy. SURGEON: Tavo Regan MD BIOLOGY ADJUNCT INSTRUCTOR: Chikis Victoria MD ANESTHESIA: GETA. ESTIMATED BLOOD LOSS: Approximately 500 mL. FLUIDS: 2 units of PRBC's, 1000 cc LR UO: 300 cc COMPLICATIONS: none. FINDINGS: 10 cm anterior intracavitary uterine fibroid. Normal fallopian tubes and ovaries. PROCEDURE NOTE: Pt was taken to the OR where General endotracheal anesthesia was induced. A Oro catheter was already in place. She was prepped and draped in a sterile fashion in the supine position. A Pfannenstiel skin incision was created with a scalpel. The fascia was incised, and the peritoneal cavity was entered. The uterus was exteriorized. The round ligaments were clamped, incised and suture ligated with O Vicryl. A bladder flap was created. A window was created in the broad ligament and both utero-ovarian ligaments were cross clamped with Sherman clamps. They were incised and suture ligated. The uterine vessels were clamped and incised. A scalpel was used to amputate the uterus at the level of the internal os. The cervical remnant was suture ligated in a running fashion with O-Vicryl. The pelvis was irrigated. Good hemostasis noted. The peritoneum was closed with O Vicryl. The Fascia was closed. The deep layer was closed with 2-O Chromic. The skin was closed with 3-0 Monocryl subcuticular sutures. An abdominal x-ray was performed which did not show any retained objects. The leny ent went to in stable condition. TAVO REGAN MD Apr 08, 2020 05:10
--- NOTE | 2020-04-08 05:49 | REPVR ---
PROCEDURE INFORMATION: Exam: XR Abdomen, 2 Views Exam date and time: 04/08/2020 5:17 AM Age: 29 years old Clinical indication: Screening exam; Other: Confirm absence of foreign body; Additional info: Confirm absence of foreign body-surgery without prior count TECHNIQUE: Imaging protocol: XR of the abdomen. Views: 2 Views. COMPARISON: No relevant prior studies available. FINDINGS: Gastrointestinal tract: Normal. No bowel dilation. Intraperitoneal space: Normal. No free air. Bones/joints: Unremarkable for age. Soft tissues: No radiopaque foreign bodies. IMPRESSION: No radiopaque foreign bodies. Electronically signed by: Luis Mahmood On 04/08/2020 05:49:48 AM
[2020-04-08 06:31] LABS: HEMATOCRIT 33.1 % (36.0-47.0); HEMOGLOBIN 10.6 g/dl (12.0-15.5); MEAN CORPUSCULAR HEMOGLOBIN 24.8 pg (27.0-33.0); MEAN CORPUSCULAR VOLUME 77.3 fl (80.0-96.0); PLATELET COUNT, AUTOMATED 382 10^3/uL (150-450); RED BLOOD COUNT 4.28 10^6/uL (4.00-5.40); WHITE BLOOD COUNT 23.7 10^3/uL (4.0-10.0)
[2020-04-08 07:16] LABS: ALBUMIN 1.4 GM/DL (3.2-5.2); ALT/SGPT 18 U/L (12-78); BILIRUBIN,TOTAL 0.3 MG/DL (0.2-1.0); BLOOD UREA NITROGEN 11 MG/DL (7-18); CALCIUM LEVEL 6.8 MG/DL (8.5-10.1); CARBON DIOXIDE LEVEL 19 MEQ/L (21-32); CHLORIDE LEVEL 107 MEQ/L (98-107); CREATININE FOR GFR 0.84 MG/DL (0.55-1.30); GLOMERULAR FILTRATION RATE > 60.0 (>60); GLUCOSE, FASTING 174 MG/DL (70-100); SODIUM LEVEL 134 MEQ/L (136-145); TOTAL PROTEIN 4.6 GM/DL (6.4-8.2)
[2020-04-08] MEDS ORDERED: DEXTROSE 50% 50 ML SYRINGE IV STA (07:40)
[2020-04-08] MEDS ORDERED: HumuLIN R (REGULAR) INSULIN (NovoLIN R) **100U/ML** PER UNIT IV STA (07:40)
[2020-04-08] MEDS ORDERED: FUROSEMIDE 40MG/4ML VIAL (J1940) IV ONE (07:45)
[2020-04-08] MEDS ORDERED: CALCIUM GLUCONATE 1,000 MG in D5W MINI-BAG PLUS 100 ML IV ONE ×3 (07:45→12:00)
--- NOTE | 2020-04-08 08:24 | IPNPDOC ---
Progress Note Date of Service: Apr 08, 2020 Progress Note Pt is s/p hysterectomy, along with a transfusion of 6 units of PRBC's. Her hemoglobin is stable at 10.6 g/dl. However, her Potassium is 7.0. Due to this critical value, plan transfer to ICU for further management. Will consult Medicine to administer Calcium Gluconate and Insulin to resolve hyperkalemia. VS, I&O, 24H, Fishbone Vital Signs/I&O Vital Signs Date Time Temp Pulse Resp B/P (MAP) Pulse Ox O2 Delivery O2 Flow Rate FiO2 04/08/20 07:29 97 83/49 (60) 04/08/20 07:16 18 04/08/20 07:16 95.9 100 04/08/20 04:54 Room Air 04/08/20 04:24 10 l I&O- Last 24 Hours up to 6 AM 04/08/20 06:00 Intake Total 7200 ml Output Total 4658 ml Balance 2542 ml Laboratory Data 24H LABS Laboratory Tests 2 04/07/20 08:50: Nucleated Red Blood Cells % (auto) 0.0, Random Glucose 85, Syphilis Serology NONREACTIVE 04/08/20 02:59: Nucleated Red Blood Cells % (auto) 0.0, Prothrombin Time 14.6H, Prothromb Time International Ratio 1.12, Activated Partial Thromboplast Time 26.4, Fibrinogen 428 04/08/20 06:24: Nucleated Red Blood Cells % (auto) 0.1H, Anion Gap 8, Glomerular Filtration Rate > 60.0, Calcium Level 6.8L, Total Bilirubin 0.3, Aspartate Amino Transf (AST/SGOT) 33, Alanine Aminotransferase (ALT/SGPT) 18, Alkaline Phosphatase 135H, Total Protein 4.6L, Albumin 1.4L, Albumin/Globulin Ratio 0.4L CBC/BMP Laboratory Tests 04/07/20 08:50 04/08/20 02:59 04/08/20 06:24 TAVO REGAN MD Apr 08, 2020 08:24
[2020-04-08] MEDS: PRENATAL VITAMINS CHEWABLE TABLET PO SCH (09:00)
[2020-04-08 09:21] LABS: HEMATOCRIT 25.5 % (36.0-47.0)
[2020-04-08 09:25] LABS: INR 1.14; PARTIAL THROMBOPLASTIN TIME 27.2 SECONDS (24.2-38.5); PROTHROMBIN TIME 14.8 SECONDS (12.5-14.3)
--- NOTE | 2020-04-08 10:03 | ECGEPIP ---
[facility] Test Date: 2020-04-08 Pat Name: PEACE VELASCO Department: Room: [place] [address] Gender: Female Clinical Material Handler: : 1990 Requested By: TAVO Osorio Order Number: [id number] Reading MD: Patricia Mccollum Measurements Intervals [place] Rate: 84 P: 52 AL: 125 QRS: 28 QRSD: 72 T: 31 QT: 356 QTc: 422 Interpretive Statements SINUS RHYTHM Electronically Signed on 04-08-2020 10:03:12 EDT by Patricia Mccollum
--- NOTE | 2020-04-08 10:13 | ECGEPIP ---
[facility] Test Date: 2020-04-08 Pat Name: PEACE VELASCO Department: Room: [place] [address] Gender: Female Cadd Technician: : 1990 Requested By: MG CARDOSO Order Number: [id number] Reading MD: Patricia Mccollum Measurements Intervals [place] Rate: 94 P: 53 [place]: 130 QRS: 20 QRSD: 73 T: 22 QT: 347 QTc: 435 Interpretive Statements SINUS RHYTHM normal C/W 04/08/20 NO CHANGE Electronically Signed on 04-08-2020 10:13:26 EDT by Patricia Mccollum
[2020-04-08 10:56] LABS: BLOOD UREA NITROGEN 10 MG/DL (7-18); CALCIUM LEVEL 6.7 MG/DL (8.5-10.1); CARBON DIOXIDE LEVEL 22 MEQ/L (21-32); CHLORIDE LEVEL 108 MEQ/L (98-107); CREATININE FOR GFR 0.74 MG/DL (0.55-1.30); GLOMERULAR FILTRATION RATE > 60.0 (>60); GLUCOSE, FASTING 153 MG/DL (70-100); POTASSIUM SERUM 4.3 MEQ/L (3.5-5.1); SODIUM LEVEL 138 MEQ/L (136-145)
[2020-04-08] MEDS: KETOROLAC 30 MG/ML 1ML VIAL IV PRN ×2 (10:57→22:34)
--- NOTE | 2020-04-08 11:48 | REPVR ---
PROCEDURE INFORMATION: Exam: XR Chest, 1 View Exam date and time: 04/08/2020 9:11 AM Age: 29 years old Clinical indication: Other vascular access device placement or adjustment; Central line, non-tunnelled; Additional info: Status post line placement TECHNIQUE: Imaging protocol: XR of the chest Views: 1 view. COMPARISON: No relevant prior studies available. FINDINGS: Tubes, catheters and devices: ECG leads/contacts overlie and partially obscure the anatomy. A right neck catheter is present with its tip projecting at the expected location of the right atrium. Lungs: Bilateral small lung volumes. The central pulmonary vasculature does not appear congested. Very mild right infrahilar linear airspace opacities consistent with atelectasis. Mild left infrahilar confluent airspace opacity, atelectasis versus consolidation. Pleural space: No evident pleural effusion. No evident pneumothorax on this supine positioned image. Heart/Mediastinum: Heart size is within normal limits given the portable technique. Bones/joints: No acute osseous abnormality. IMPRESSION: 1. A right neck catheter is present with its tip projecting at the expected location of the right atrium. No evident pneumothorax. 2. Bilateral small lung volumes. 3. Mild left lower lung airspace opacities, atelectasis versus consolidation. 4. Very mild right lower lung atelectasis. Electronically signed by: Liam Tierney On 04/08/2020 11:48:10 AM
--- NOTE | 2020-04-08 12:26 | IPNPDOC ---
Date Seen The patient was seen on 04/08/20. Progress Note Critical Care CONSULT: Patient is a 29-year-old female with a PMHx of diabetes who presented induction at 37 weeks gestation. After delivery patient was noted to have hemorrhage. Multiple uterotonic agents and the Bakri balloon were used to try to control the bleeding. Patient had on going blood loss and Dr. Silverman did a hysterectomy after palpating a uterine fibroid within the cavity of the uterus. Patient was transfused prior to surgery as well as during for a total of 6 units PRBC. After transfusion patient was hyperkalemic and transferred to ICU for monitoring. She was administered ceftriaxone intraoperatively and presented to the ICU with a barajas catheter already in place. In the ICU she was hypothermic and hypotensive requiring additional bolus of NS and dewey hugger. Intensive care has been consulted due to patient's hyperkalemia, hypothermic, and hypotensive state with poor peripheral access. Patient currently appears drowsy but is easily arousable and answering questions. She reports feeling fatigue and some dyspnea but denies any chest pain, no coughing or wheezing. She has some abdominal pain but reportedly mild and no nausea or vomiting. PAST MEDICAL HISTORY: 1. Type 1 DM/Gestational diabetes 2. History of previous chlamydia, Trichomonas infections PAST SURGICAL HISTORY: 1. [place] teeth extraction 2. D&C FAMILY HISTORY: Grandmother: colon cancer Grandfather: melanoma SOCIAL HISTORY: nonsmoker, occasional EtOH, denies recreational drug use OBJECTIVE PHYSICAL EXAMINATION: VITAL SIGNS: Please see below. GENERAL: Patient is pleasant and cooperative. She is conversational and in mild distress because she didn't know where she was at first. After learning that she was in the ICU, she was calm and cooperated during the CVC placement. HEENT: Oral mucosal membranes dry. CARDIOVASCULAR: Regular rate and rhythm, borderline tachycardia, pulse ranged from 105-110 RESPIRATORY: Diminished breath sounds. ABDOMINAL: Soft, tender in lower abdominal quadrants. Patient has a bandage from the hysterectomy scar. EXTREMITIES: No edema appreciated. NEUROLOGICAL: Alert and oriented. PSYCHOLOGICAL: Mildly distressed, status post surgical procedure (hysterectomy). LABORATORY DATA, IMAGING STUDIES, MICROBIOLOGY: Please see below. CXR: Poor inspiratory effort. RIJ central line in position. No pneumothorax. Atelectasis in left lung base, minimal atelectasis in right ASSESSMENT AND PLAN: This is a 29-year-old female with a hx of diabetes who had hemorrhage secondary to uterine fibroid and is s/p hysterectomy. Patient received 6 units PRBC and developed hyperkalemia and was transferred to ICU for monitoring. PROBLEMS: 1. Hypotension: hx hemorrhage, likely component hypovolemia, also possible sepsis with leukocytosis. Patient was given IVF with BP response, did not require pressors. - lactic acid mildly elevated, continue to trend - CXR showed evidence of atelectasis and poor inspiratory effort, no clear opacities. Barajas in place, will check UA. Will also check blood cultures for sepsis work up - cont with ceftriaxone for antibiotics, no hx or risk factors for drug resistant organisms. Will check MRSA screen and trend procalcitonin - central venous catheter placed for IV access - cont NS at 150ml/hr, monitor for hyponatremia and hyperchloremia. If patient is hypotensive consider albumin given hypoalbuminemia for volume rescusitation. 2. Post- hemorrhage- s/p 6 units PRBC - continue monitoring H/H and transfuse as needed if Hg less than 7. Given multiple transfusions coagulation panel with fibrinogen ordered to monitor for DIC and consumptive coagulopathy. if further PRBC needed consider transfusion with FFP also. if fibrinogen low (less 150) would give cryoprecipitate - hypocalemia in setting of PRBC transfusion. repeat ionized calcium low, will replete. - Hyperkalemia in setting of transfusion. Was given calcium, insulin/D50 and IVF. Potassium trending down, no arrythmia on telemetry. DC lasix as patient is intravascularly depleted. - DVT with SCDs. if no further evidence of bleeding and acceptable by OB would transition to lovenox as patient prothrombotic post 3. Hypoxia- appears to have improved. Evidence of atelectasis on CXR and low lung volumes. will give incentive spirometer DVT ppx SCDs Full code DISPOSITION: Consider transferring pt to PCU tomorrow if patient continues to improve today. VS, I&O, 24H, Fishbone Vital Signs/I&O Vital Signs Date Time Temp Pulse Resp B/P (MAP) Pulse Ox O2 Delivery O2 Flow Rate FiO2 04/08/20 07:29 97 83/49 (60) 04/08/20 07:16 18 04/08/20 07:16 95.9 100 04/08/20 04:54 Room Air 04/08/20 04:24 10 I&O- Last 24 Hours up to 6 AM 04/08/20 05:59 Intake Total 7200 ml Output Total 4658 ml Balance 2542 ml Laboratory Data 24H LABS Laboratory Tests 2 04/08/20 02:59: Nucleated Red Blood Cells % (auto) 0.0, Prothrombin Time 14.6H, Prothromb Time International Ratio 1.12, Activated Partial Thromboplast Time 26.4, Fibrinogen 428 04/08/20 06:24: Nucleated Red Blood Cells % (auto) 0.1H, Anion Gap 8, Glomerular Filtration Rate > 60.0, Calcium Level 6.8L, Total Bilirubin 0.3, Aspartate Amino Transf (AST/SGOT) 33, Alanine Aminotransferase (ALT/SGPT) 18, Alkaline Phosphatase 135H, Total Protein 4.6L, Albumin 1.4L, Albumin/Globulin Ratio 0.4L 04/08/20 08:39: Prothrombin Time 14.8H, Prothromb Time International Ratio 1.14, Activated Partial Thromboplast Time 27.2, Fibrinogen 290 04/08/20 09:50: 04/08/20 10:12: Anion Gap 8, Glomerular Filtration Rate > 60.0, Calcium Level 6.7L CBC/BMP Laboratory Tests 04/08/20 02:59 04/08/20 06:24 04/08/20 08:40 04/08/20 10:12 GME ATTESTATION GME ATTESTATION My faculty preceptor for this patient encounter was physically present during the encounter and was fully available. All aspects of the patient interview, examination, medical decision making process, and medical care plan development were reviewed and approved by the faculty preceptor. The faculty preceptor is aware and concurs with the plan as stated in the body of this note and will attest to such by his/her cosignature. ATTENDING NOTE I, Alta Gunn, conducted independent examination and history of the patient and agree with the plan as detailed above and discussed during rounds Total critical care time spent not including procedures approx 1 hour and 25 mins Jesse Garcia DO Apr 08, 2020 12:26 ALTA GUNN MD Apr 08, 2020 16:50
[2020-04-08] MEDS ORDERED: GLUCAGON INJ 1MG VIAL SC PRN (12:45)
[2020-04-08] MEDS ORDERED: GLUCOSE 4GM CHEW TABLET PO PRN (12:45)
[2020-04-08] MEDS ORDERED: DEXTROSE 50% 50 ML SYRINGE IV PRN (12:45)
[2020-04-08] MEDS ORDERED: NS 1,000 ML IV ONE (14:45)
[2020-04-08] MEDS: cefTRIAXone SOD 2 GM in D5W MINI-BAG PLUS 50 ML IV SCH (14:50)
[2020-04-08 14:59] LABS: BASO % 0.1 % (0.0-1.0); HEMATOCRIT 24.5 % (36.0-47.0); HEMOGLOBIN 7.7 g/dl (12.0-15.5); LYMPH % 13.6 % (24.0-44.0); MEAN CORPUSCULAR HEMOGLOBIN 24.6 pg (27.0-33.0); MEAN CORPUSCULAR HGB CONC 31.4 g/dl (32.0-36.5); MEAN CORPUSCULAR VOLUME 78.3 fl (80.0-96.0); MONO # 0.5 10^3/uL (0.0-0.8); MONO % 3.4 % (0.0-5.0); NEUTROPHILS % 82.5 % (36.0-66.0); RED BLOOD COUNT 3.13 10^6/uL (4.00-5.40); WHITE BLOOD COUNT 14.5 10^3/uL (4.0-10.0)
[2020-04-08 15:09] LABS: PLATELET COUNT, AUTOMATED 274 10^3/uL (150-450)
--- NOTE | 2020-04-08 15:17 | IPNPDOC ---
Progress Note Date of Service: Apr 08, 2020 Progress Note SUBJECT:Sleeping comfortable at present. Has had one dose of Toradol for pain. Tolerated regular diet today OBJECTIVE: VITAL SIGNS: Within normal limits, afebrile. Alert and oriented times three. Breath sounds clear to auscultation. Heart rate: Regular rate and rhythm, no murmurs, rubs or gallops. Abdomen: Soft, dressing intact [Minimal] lochia. ASSESSMENT: 29 yo S/p post hysterectomy for hemorrhage and large uterine fibroid Hb=7.7 g/dl K+=4.3 PLAN: Pt will likely need more PRBC's at some point Agree with fluid bolus Potassium normalized currently Appreciate Medicine/ICU care VS, I&O, [facility] Vital Signs/I&O Vital Signs Date Time Temp Pulse Resp B/P (MAP) Pulse Ox O2 Delivery O2 Flow Rate FiO2 04/08/20 07:29 97 83/49 (60) 04/08/20 07:16 18 04/08/20 07:16 95.9 100 04/08/20 04:54 Room Air 04/08/20 04:24 10 I&O- Last 24 Hours up to 6 AM 04/08/20 06:00 Intake Total 7200 ml Output Total 4658 ml Balance 2542 ml Laboratory Data 24H LABS Laboratory Tests 2 04/08/20 02:59: Nucleated Red Blood Cells % (auto) 0.0, Prothrombin Time 14.6H, Prothromb Time International Ratio 1.12, Activated Partial Thromboplast Time 26.4, Fibrinogen 428 04/08/20 06:24: Nucleated Red Blood Cells % (auto) 0.1H, Anion Gap 8, Glomerular Filtration Rate > 60.0, Calcium Level 6.8L, Total Bilirubin 0.3, Aspartate Amino Transf (AST/SGOT) 33, Alanine Aminotransferase (ALT/SGPT) 18, Alkaline Phosphatase 135H, Total Protein 4.6L, Albumin 1.4L, Albumin/Globulin Ratio 0.4L 04/08/20 08:39: Prothrombin Time 14.8H, Prothromb Time International Ratio 1.14, Activated Partial Thromboplast Time 27.2, Fibrinogen 290 04/08/20 09:50: Lactic Acid Level 2.1*H, Whole Blood Ionized Calcium 4.0L 04/08/20 10:12: Anion Gap 8, Glomerular Filtration Rate > 60.0, Calcium Level 6.7L, Methicillin- Resist S.aureus DNA PCR NOT DETECTED 04/08/20 12:59: Bedside Glucose (Misc Panel) 117H 04/08/20 14:42: Immature Granulocyte % (Auto) 0.4, Neutrophils (%) (Auto) 82.5H, Lymphocytes (%) (Auto) 13.6L, Monocytes (%) (Auto) 3.4, Eosinophils (%) (Auto) 0.0, Basophils (%) (Auto) 0.1, Neutrophils # (Auto) 12.0H, Lymphocytes # (Auto) 2.0, Monocytes # (Auto) 0.5, Eosinophils # (Auto) 0.0, Basophils # (Auto) 0.0, Nucleated Red Blood Cells % (auto) 0.0 CBC/BMP Laboratory Tests 04/08/20 02:59 04/08/20 06:24 04/08/20 08:40 04/08/20 10:12 04/08/20 14:42 Microbiology Microbiology 04/08/20 Blood Culture, Received Pending 04/08/20 Blood Culture, Received Pending TAVO REGAN MD Apr 08, 2020 15:17
[2020-04-08 15:32] LABS: ALBUMIN 1.3 GM/DL (3.2-5.2); ALT/SGPT 17 U/L (12-78); BILIRUBIN,TOTAL 0.1 MG/DL (0.2-1.0); BLOOD UREA NITROGEN 13 MG/DL (7-18); CALCIUM LEVEL 7.3 MG/DL (8.5-10.1); CARBON DIOXIDE LEVEL 21 MEQ/L (21-32); CHLORIDE LEVEL 106 MEQ/L (98-107); CREATININE FOR GFR 0.82 MG/DL (0.55-1.30); GLOMERULAR FILTRATION RATE > 60.0 (>60); GLUCOSE, FASTING 133 MG/DL (70-100); POTASSIUM SERUM 4.6 MEQ/L (3.5-5.1); SODIUM LEVEL 136 MEQ/L (136-145); TOTAL PROTEIN 4.1 GM/DL (6.4-8.2)
[2020-04-08] MEDS: NS 1,000 ML IV SCH (15:50)
--- NOTE | 2020-04-08 15:51 | CR.PDOC ---
General Date of Consultation: Apr 08, 2020 Referring Provider: TAVO REGAN MD Attending Physician: ROSALINDA BOND MD Consultation REASON FOR CONSULTATION/CHIEF COMPLAINT: hemorrhage s/p hysterectomy found to have hyperkalemia HISTORY OF PRESENT ILLNESS: Roberta Perez is a 29 YO G17, P4, 0, 13, 4 who presented at 37 1/7 weeks for labor induction. Delivery was complicated by hemorrhage requiring emergency hysterectomy. The patient received 5U pRBCs and this morning was found to have hyperkalemia at 7.0. There were no EKG changes. On my examination this morning, the patient denies any pain but states she feels tired. She denies any chest pain, shortness of breath, or abdominal pain other than soreness at the area where she had surgery. ALLERGIES: Please see below. HOME MEDICATIONS: Please see below. PAST MEDICAL HISTORY: 1. Type 1 DM/Gestational diabetes? 2. History of previous chlamydia, Trichomonas infections PAST SURGICAL HISTORY: 1. [place] teeth extraction 2. D&C FAMILY HISTORY: Grandmother: colon cancer Grandfather: melanoma SOCIAL HISTORY: nonsmoker, occasional EtOH, denies recreational drug use REVIEW OF SYSTEMS: Unable to obtain other than what is mentioned in HPI due to patient's sedation PHYSICAL EXAMINATION: VITAL SIGNS: see below GENERAL: in no apparent distress, somewhat sedated, using nonrebreather oxygen HEENT: PERRL, EOMI, Oral mucous membranes are moist without lesions. NECK: The patient has no noted JVD. No adenopathy is appreciated. No thyromegaly CHEST/LUNGS: Lungs are clear bilaterally without rhonchi, rales, or wheezes. There is no subcutaneous air appreciated. There is no tenderness to the chest wall. HEART:Regular rate and rhythm. No murmurs, rubs, or gallops are appreciated. Distal pulses are 2+. No carotid bruits appreciated. ABDOMEN: Protuberant, Soft, nontender, and nondistended. There is a surgical bandage in lower abdomen: Clean/dry/intact. Bowel sounds are positive. No organomegaly is appreciated. No masses are appreciated. There are no peritoneal signs. There is no [place] sign. EXTREMITIES: No peripheral edema. There is no focal long bone tenderness or deformity. SKIN: The patients skin is warm and dry, without rashes or lesions. PSYCHIATRIC: AAO x 3, normal mood/affect NEUROLOGIC: The patient has 5/5 strength to the upper and lower extremities bilaterally. Sensation is intact throughout. Deep tendon reflexes are 2+ in all four extremities. There are no deficits to the cranial nerves. LABORATORY DATA: Please see below. ASSESSMENT/PLAN: This is a 29-year-old female status post total hysterectomy for hemorrhage and large uterine fibroid. This morning she was found to be hyperkalemic with concern for sepsis with hypotension. # hemorrhage s/p hysterectomy: -s/p 5U pRBCs. H/H has slowly trended down to 7.7 post resuscitation. If it falls below 7 will give subsequent blood transfusions. Suspect this may have some hemodilutional component as well -Empiric Ceftriaxone -s/p IVF boluses x3, continue with maintenance fluids 150cc/hr -WBC stable around 14.5 -Lactic acid trended down from 2.1 to 1.7 -Patient hemodynamically stable for now. Will continue to give fluid boluses to maintain MAP >65 and add pressors if needed # Hyperkalemia: Patient was found to have potassium 7.0, no EKG changes -Status post calcium gluconate, insulin, D5 -Potassium has now improved to 4.3 #Type I DM vs Gestational DM? -SSI with hypoglycemic protocol -FSBS AC&HS -Consistent carbohydrate diet DVT ppx: TEDs/SCDs Vital Signs/I&O Vital Signs Date Time Temp Pulse Resp B/P (MAP) Pulse Ox O2 Delivery O2 Flow Rate FiO2 04/08/20 07:29 97 83/49 (60) 04/08/20 07:16 18 04/08/20 07:16 95.9 100 04/08/20 04:54 Room Air 04/08/20 04:24 10 I&O- Last 24 Hours up to 6 AM 04/08/20 06:00 Intake Total 7200 ml Output Total 4658 ml Balance 2542 ml Laboratory Data Labs 24H Laboratory Tests 2 04/08/20 02:59: Nucleated Red Blood Cells % (auto) 0.0, Prothrombin Time 14.6H, Prothromb Time I nternational Ratio 1.12, Activated Partial Thromboplast Time 26.4, Fibrinogen 428 04/08/20 06:24: Nucleated Red Blood Cells % (auto) 0.1H, Anion Gap 8, Glomerular Filtration Rate > 60.0, Calcium Level 6.8L, Total Bilirubin 0.3, Aspartate Amino Transf (AST/SGOT) 33, Alanine Aminotransferase (ALT/SGPT) 18, Alkaline Phosphatase 135H, Total Protein 4.6L, Albumin 1.4L, Albumin/Globulin Ratio 0.4L 04/08/20 08:39: Prothrombin Time 14.8H, Prothromb Time International Ratio 1.14, Activated Partial Thromboplast Time 27.2, Fibrinogen 290 04/08/20 09:50: Lactic Acid Level 2.1*H, Whole Blood Ionized Calcium 4.0L 04/08/20 10:12: Anion Gap 8, Glomerular Filtration Rate > 60.0, Calcium Level 6.7L, Methicillin- Resist S.aureus DNA PCR NOT DETECTED 04/08/20 12:59: Bedside Glucose (Misc Panel) 117H 04/08/20 14:42: Immature Granulocyte % (Auto) 0.4, Neutrophils (%) (Auto) 82.5H, Lymphocytes (%) (Auto) 13.6L, Monocytes (%) (Auto) 3.4, Eosinophils (%) (Auto) 0.0, Basophils (%) (Auto) 0.1, Neutrophils # (Auto) 12.0H, Lymphocytes # (Auto) 2.0, Monocytes # (Auto) 0.5, Eosinophils # (Auto) 0.0, Basophils # (Auto) 0.0, Nucleated Red Blood Cells % (auto) 0.0, Lactic Acid Followup at 4 Hours 1.7 CBC/BMP Laboratory Tests 04/08/20 02:59 04/08/20 06:24 04/08/20 08:40 04/08/20 10:12 04/08/20 14:42 Microbiology Microbiology 04/08/20 Blood Culture, Received Pending 04/08/20 Blood Culture, Received Pending Allergies Coded Allergies: No Known Allergies (Unverified , 03/21/20) Home Medications Scheduled Prenat 115/Iron Fum/Folic/Dss ( 19 Tablet) 1 Each Tablet, 1 TAB PO DAILY for 30 Days, #30 (Reported) GME ATTESTATION GME ATTESTATION My faculty preceptor for this patient encounter was physically present during the encounter and was fully available. All aspects of the patient interview, examination, medical decision making process, and medical care plan development were reviewed and approved by the faculty preceptor. The faculty preceptor is aware and concurs with the plan as stated in the body of this note and will attest to such by his/her cosignature. ATTENDING NOTE Patient was seen and examined by me personally with the residents/ students. I agree with the above assessment and plan MG CARDOSO MD Apr 08, 2020 15:51 ROSALINDA BOND MD Apr 26, 2020 12:22
[2020-04-08] MEDS: HumaLOG INSULIN (NovoLOG) PER UNIT SC SCH ×2 (17:55→21:00)
[2020-04-08] MEDS: PERCOCET 5MG/325MG TAB PO PRN (18:08)
[2020-04-08 19:59] LABS: HEMATOCRIT 24.8 % (36.0-47.0)
[2020-04-08] MEDS: MORPHINE 4 MG/ML 1ML VIAL/SYRINGE (J2270) IV PRN (20:32)
[2020-04-09] VITALS (19 sets, daily range): BP systolic 94–139; BP diastolic 53–86
[2020-04-09] MEDS: NS 1,000 ML IV SCH ×2 (00:33→05:58)
[2020-04-09 02:20] LABS: HEMATOCRIT 20.6 % (36.0-47.0); HEMOGLOBIN 6.5 g/dl (12.0-15.5)
[2020-04-09] MEDS: MORPHINE 4 MG/ML 1ML VIAL/SYRINGE (J2270) IV PRN (03:18)
[2020-04-09] MEDS: KETOROLAC 30 MG/ML 1ML VIAL IV PRN ×3 (06:43→20:41)
--- NOTE | 2020-04-09 07:22 | IPNPDOC ---
Progress Note Date of Service: Apr 09, 2020 Progress Note Subjective: Pain well controlled. No bleeding. No nausea. OBJECTIVE: VITAL SIGNS: Within normal limits, afebrile. Alert and oriented times three. Breath sounds clear to auscultation. Heart rate: Regular rate and rhythm, no murmurs, rubs or gallops. Abdomen: Fundus firm at U-2. Soft, NTTP. Dressing intact. [Minimal] lochia. Hb = 6.5 g/dl ASSESSMENT: 29 yo POD#1 s/p hysterectomy PLAN: Transfuse another unit of PRBC's, to keep Hb around 8 g/dl. She has received 8 units of blood thus far. I expect an estimated need of 10 units of blood after h er calculated blood loss. Continue Monk catheter today. Advance diet. Get her out of bed today. VS, I&O, 24H, Fishbone Vital Signs/I&O Vital Signs Date Time Temp Pulse Resp B/P (MAP) Pulse Ox O2 Delivery O2 Flow Rate FiO2 04/09/20 06:53 97.5 68 13 108/63 96 Room Air 04/08/20 08:00 10.0 I&O- Last 24 Hours up to 6 AM 04/09/20 06:00 Intake Total 6350 ml Output Total 1705 ml Balance 4645 ml Laboratory Data 24H LABS Laboratory Tests 2 04/08/20 08:39: Prothrombin Time 14.8H, Prothromb Time International Ratio 1.14, Activated Pa rtial Thromboplast Time 27.2, Fibrinogen 290 04/08/20 09:50: Lactic Acid Level 2.1*H, Whole Blood Ionized Calcium 4.0L 04/08/20 10:12: Anion Gap 8, Glomerular Filtration Rate > 60.0, Calcium Level 6.7L, Methicillin- Resist S.aureus DNA PCR NOT DETECTED 04/08/20 12:59: Bedside Glucose (Misc Panel) 117H 04/08/20 14:42: Immature Granulocyte % (Auto) 0.4, Neutrophils (%) (Auto) 82.5H, Lymphocytes (%) (Auto) 13.6L, Monocytes (%) (Auto) 3.4, Eosinophils (%) (Auto) 0.0, Basophils (%) (Auto) 0.1, Neutrophils # (Auto) 12.0H, Lymphocytes # (Auto) 2.0, Monocytes # (Auto) 0.5, Eosinophils # (Auto) 0.0, Basophils # (Auto) 0.0, Nucleated Red Blood Cells % (auto) 0.0, Anion Gap 9, Glomerular Filtration Rate > 60.0, Lactic Acid Followup at 4 Hours 1.7, Calcium Level 7.3L, Total Bilirubin 0.1#L, Aspartate Amino Transf (AST/SGOT) 28, Alanine Aminotransferase (ALT/SGPT) 17, Alkaline Phosphatase 107, Total Protein 4.1L, Albumin 1.3L, Albumin/Globulin Ratio 0.5L 04/08/20 17:49: Bedside Glucose (Misc Panel) 119H 04/08/20 20:31: Bedside Glucose (Misc Panel) 112H CBC/BMP Laboratory Tests 04/08/20 08:40 04/08/20 10:12 04/08/20 14:42 04/08/20 19:50 04/09/20 02:10 Microbiology Microbiology 04/08/20 Blood Culture, Received Pending 04/08/20 Blood Culture, Received Pending TAVO REGAN MD Apr 09, 2020 07:22
[2020-04-09] MEDS: HumaLOG INSULIN (NovoLOG) PER UNIT SC SCH ×4 (07:30→21:00)
[2020-04-09] MEDS: PRENATAL VITAMINS CHEWABLE TABLET PO SCH (08:19)
[2020-04-09] MEDS: cefTRIAXone SOD 2 GM in D5W MINI-BAG PLUS 50 ML IV SCH (08:20)
[2020-04-09] MEDS: PERCOCET 5MG/325MG TAB PO PRN ×3 (08:20→21:53)
[2020-04-09 09:43] LABS: HEMATOCRIT 28.4 % (36.0-47.0); MEAN CORPUSCULAR HEMOGLOBIN 26.7 pg (27.0-33.0); MEAN CORPUSCULAR VOLUME 83.3 fl (80.0-96.0); PLATELET COUNT, AUTOMATED 163 10^3/uL (150-450); RED BLOOD COUNT 3.41 10^6/uL (4.00-5.40); WHITE BLOOD COUNT 10.6 10^3/uL (4.0-10.0)
[2020-04-09 09:46] LABS: INR 0.91; PARTIAL THROMBOPLASTIN TIME 25.5 SECONDS (24.2-38.5); PROTHROMBIN TIME 12.5 SECONDS (12.5-14.3)
[2020-04-09 10:02] LABS: BLOOD UREA NITROGEN 8 MG/DL (7-18); CALCIUM LEVEL 6.9 MG/DL (8.5-10.1); CARBON DIOXIDE LEVEL 22 MEQ/L (21-32); CHLORIDE LEVEL 111 MEQ/L (98-107); CREATININE FOR GFR 0.72 MG/DL (0.55-1.30); GLOMERULAR FILTRATION RATE > 60.0 (>60); GLUCOSE, FASTING 118 MG/DL (70-100); POTASSIUM SERUM 3.7 MEQ/L (3.5-5.1); SODIUM LEVEL 140 MEQ/L (136-145)
[2020-04-09 10:08] LABS: HEMOGLOBIN 9.1 g/dl (12.0-15.5)
[2020-04-09] MEDS ORDERED: PERCOCET 5MG/325MG TAB PO ONE (11:00)
--- NOTE | 2020-04-09 12:27 | IPNPDOC ---
Text Note Date of Service The patient was seen on 04/09/20. NOTE SUBJECTIVE: -Doing very well this morning. Excited to return to [facility]. -No complaints PHYSICAL EXAMINATION: VITAL SIGNS: see below GENERAL: NAD, obese HEENT: NCAT, PERRLA, EOMI, MMM NECK: Supple, no JVD or adenopathy CHEST: Clear bilaterally without rhonchi, rales, or wheezes. HEART: Regular rate and rhythm. No murmurs, rubs, or gallops are appreciated. Distal pulses are 2+. ABDOMEN: Dressing c/d/i, soft, non tender, normoactive bowel sounds. EXTREMITIES: WWP, No peripheral edema. SKIN: Warm and dry, without rashes or lesions. PSYCHIATRIC: AAO x 3, in a good mood as she return to OB floor NEUROLOGIC:5/5 strength to the upper and lower extremities bilaterally, sensation is intact throughout, CN 3-12 intact LABORATORY DATA: Please see below. Hgb now 9.1 ASSESSMENT/PLAN: 29-year-old G17,P4,0,13,4 who was transferred to the medical ICU s/p total hysterectomy for hemorrhage and removal of large uterine fibroid for hyperkalemia to 7 after transfusion of 5u of pRBCs. Her ICU course was c/b persistent worsening anemia for which she required 1 more unit of blood, to total 6u, now stable and hyperkalemia treated and resolved. # hemorrhage s/p hysterectomy: -s/p 6U pRBCs. -Goal Hgb >7 -continues on empiric ceftriaxone -s/p fluid resuscitation. Remains on maintenance fluids that may dc'd per the discretion of senior product development manager at this time. Otherwise stable # Hyperkalemia: Patient was found to have potassium 7.0 without EKG changes, 2/2 massive blood transfusion. -s/p calcium gluconate, insulin/d50 #Type I DM vs Gestational DM? -SSI with hypoglycemic protocol -FSBS AC&HS -Consistent carbohydrate diet DVT ppx: TEDs/SCDs Dispo: transfer back to senior product development manager VS,Thu, I+O VS, Thu, I+O Laboratory Tests 04/08/20 14:42 04/08/20 19:50 04/09/20 02:10 04/09/20 09:07 Vital Signs Date Time Temp Pulse Resp B/P (MAP) Pulse Ox O2 Delivery O2 Flow Rate FiO2 04/09/20 11:55 75 129/83 (98) 97 Room Air 04/09/20 10:58 18 04/09/20 09:00 97.9 04/08/20 08:00 10.0 I&O- Last 24 Hours up to 6 AM 04/09/20 06:00 Intake Total 6350 ml Output Total 1705 ml Balance 4645 ml KELY GOMEZ MD Apr 09, 2020 12:27
--- NOTE | 2020-04-09 12:37 | IPNPDOC ---
Progress Note Date of Service: Apr 09, 2020 Day#: 2 Progress Note POD 2 Subjective: Roberta is a 29yo U38rugG9,0,13,5 s/p complicated by hemorrhage caused by large intra-cavitary fibroid necessitating life-saving abdominal hysterectomy. She has thus far required 9 units of pRBCs transfusion and course was further complicated by hyperkalemia, for which she was transferred to ICU for management in conjunction with the medicine team. She received glucagon and insulin and her hyperkalemia quickly corrected. Currently she is doing really well. The last 3 of her 9 units of pRBCs were transfused at 1630 on 04/08 then 0250 on 04/09 and finally 0630 on 04/09. Presently her pain is well controlled. She ambulated yesterday once without issue, has not ambulated yet this morning. She ate eggs and figueroa for breakfast and tolerated it well, no nausea/vomiting. Has barajas catheter in place draining clear yellow urine. Has central line in place. No vaginal bleeding. Baby is in [place] [facility]. Patient's history is significant for pre-gestational diabetes and obesity. OBJECTIVE: VITAL SIGNS: Within normal limits, afebrile. Alert and oriented times three. Patient is conversant and in good spirits. Abdomen: Soft, non-distended, appropriately tender to palpation without nam ound/guarding. Optifoam dressing covering pfannenstiel incision is clean/dry/intact with no strike-through Labs: 04/09 0210: H/H 6.5/20.6 04/09 0900: H/H 9.1/28.4, plt 163 Coags wnl Na 140, K 3.7, Cl 111, HCO3 22, BUN 8, creat 0.72, gluc 118 UOP >75ml/hr ASSESSMENT: Roberta is a 29yo F70gabF0,0,13,5 s/p complicated by hemorrhage caused by large intra-cavitary fibroid necessitating life-saving abdominal hysterectomy. She has thus far required 9 units of pRBCs transfusion and course was further complicated by hyperkalemia, for which she was transferred to ICU for management in conjunction with the medicine team. She received glucagon and insulin and her hyperkalemia quickly corrected. Patient now appears to be hemodynamically stable based on most recent H/H, UOP, vitals and exam. No evidence of infection. PLAN: Transfer from ICU to [facility] Remove central line Continue diabetic diet and sliding scale insulin, but hopeful to initiate prior insulin regimen (halved) with dinner if still eating normally Encourage ambulation and use of IS With continued stability, consider removal of barajas catheter this evening Patient has been receiving rocephin 2g IV q24hr prophylactically, consider discontinuing For pain: PO percocet, prn morphine Repeat H/H at 1400 planned and CMP 0800 tomorrow. If H/H stable, will plan to draw again tomorrow morning with [facility] Helen Terry MD VS, I&O, 24H, Fishbone Vital Signs/I&O Vital Signs Date Time Temp Pulse Resp B/P (MAP) Pulse Ox O2 Delivery O2 Flow Rate FiO2 04/09/20 11:55 75 129/83 (98) 97 Room Air 04/09/20 10:58 18 04/09/20 09:00 97.9 04/08/20 08:00 10.0 I&O- Last 24 Hours up to 6 AM 04/09/20 06:00 Intake Total 6350 ml Output Total 1705 ml Balance 4645 ml Laboratory Data 24H LABS Laboratory Tests 2 04/08/20 12:59: Bedside Glucose (Misc Panel) 117H 04/08/20 14:42: Immature Granulocyte % (Auto) 0.4, Neutrophils (%) (Auto) 82.5H, Lymphocytes (%) (Auto) 13.6L, Monocytes (%) (Auto) 3.4, Eosinophils (%) (Auto) 0.0, Basophils (%) (Auto) 0.1, Neutrophils # (Auto) 12.0H, Lymphocytes # (Auto) 2.0, Monocytes # (Auto) 0.5, Eosinophils # (Auto) 0.0, Basophils # (Auto) 0.0, Nucleated Red Blood Cells % (auto) 0.0, Anion Gap 9, Glomerular Filtration Rate > 60.0, Lactic Acid Followup at 4 Hours 1.7, Calcium Level 7.3L, Total Bilirubin 0.1#L, Aspartate Amino Transf (AST/SGOT) 28, Alanine Aminotransferase (ALT/SGPT) 17, Alkaline Phosphatase 107, Total Protein 4.1L, Albumin 1.3L, Albumin/Globulin Ratio 0.5L 04/08/20 17:49: Bedside Glucose (Misc Panel) 119H 04/08/20 20:31: Bedside Glucose (Misc Panel) 112H 04/09/20 09:07: Nucleated Red Blood Cells % (auto) 0.0, Prothrombin Time 12.5, Prothromb Time International Ratio 0.91, Activated Partial Thromboplast Time 25.5, Fibrinogen 388, Anion Gap 7L, Glomerular Filtration Rate > 60.0, Calcium Level 6.9L 04/09/20 09:33: Lab Scanned Report Mat/Ped HIV Prevention & Care Program 04/09/20 12:05: Bedside Glucose (Misc Panel) 75 CBC/BMP Laboratory Tests 04/08/20 14:42 04/08/20 19:50 04/09/20 02:10 04/09/20 09:07 Microbiology Microbiology 04/08/20 Blood Culture, Received Pending 04/08/20 Blood Culture - Preliminary, Resulted No growth after 24 hours . All specim... Helen Terry MD Apr 09, 2020 12:37
[2020-04-09 14:23] LABS: HEMATOCRIT 27.6 % (36.0-47.0); HEMOGLOBIN 8.9 g/dl (12.0-15.5)
[2020-04-10 02:30] VITALS: BP 126/78
[2020-04-10] MEDS: KETOROLAC 30 MG/ML 1ML VIAL IV PRN (02:34)
[2020-04-10] MEDS: PERCOCET 5MG/325MG TAB PO PRN ×4 (02:49→14:54)
[2020-04-10 06:20] VITALS: BP 113/69
[2020-04-10] MEDS: HumaLOG INSULIN (NovoLOG) PER UNIT SC SCH ×2 (06:56→12:00)
[2020-04-10 07:47] LABS: HEMOGLOBIN 8.8 g/dl (12.0-15.5); MEAN CORPUSCULAR HEMOGLOBIN 26.9 pg (27.0-33.0); MEAN CORPUSCULAR HGB CONC 32.6 g/dl (32.0-36.5); MEAN CORPUSCULAR VOLUME 82.6 fl (80.0-96.0); PLATELET COUNT, AUTOMATED 181 10^3/uL (150-450); RED BLOOD COUNT 3.27 10^6/uL (4.00-5.40)
[2020-04-10] MEDS: PRENATAL VITAMINS CHEWABLE TABLET PO SCH (07:57)
[2020-04-10 08:03] LABS: BLOOD UREA NITROGEN 5 MG/DL (7-18); CALCIUM LEVEL 7.3 MG/DL (8.5-10.1); CARBON DIOXIDE LEVEL 24 MEQ/L (21-32); CHLORIDE LEVEL 111 MEQ/L (98-107); CREATININE FOR GFR 0.56 MG/DL (0.55-1.30); GLOMERULAR FILTRATION RATE > 60.0 (>60); GLUCOSE, FASTING 67 MG/DL (70-100); POTASSIUM SERUM 4.1 MEQ/L (3.5-5.1); SODIUM LEVEL 140 MEQ/L (136-145)
[2020-04-10 10:03] VITALS: BP 124/72
[2020-04-10] MEDS: cefTRIAXone SOD 2 GM in D5W MINI-BAG PLUS 50 ML IV SCH (10:03)
--- NOTE | 2020-04-10 10:28 | IPNPDOC ---
Text Note Date of Service The patient was seen on 04/10/20. NOTE SUBJECTIVE: -Doing well, no acute complaints PHYSICAL EXAMINATION: VITAL SIGNS: see below GENERAL: NAD, obese HEENT: NCAT, PERRLA, EOMI, MMM NECK: Supple, no JVD or adenopathy CHEST: CTAB HEART: RRR, no mrg ABDOMEN: Dressing c/d/i, soft, non tender, normoactive bowel sounds. EXTREMITIES: WWP, No peripheral edema. SKIN: Warm and dry, without rashes or lesions. PSYCHIATRIC: AAO x 3 NEUROLOGIC: 5/5 strength throughout, CN 3-12 intact LABORATORY DATA: Please see below. Hgb stable. This morning is 8.8 WBC 10 na 140 K 4.1 Cr 0.56 ASSESSMENT/PLAN: 29-year-old G17,P4,0,13,4 who was transferred to the medical ICU s/p total hysterectomy for hemorrhage and removal of large uterine fibroid for hyperkalemia to 7 after transfusion of 5u of pRBCs. Her ICU course was c/b persistent worsening anemia for which she required 1 more unit of blood, to total 6u, now stable and hyperkalemia treated and resolved. # hemorrhage s/p hysterectomy: -s/p 6U pRBCs. -Goal Hgb >7 -continues on empiric ceftriaxone, abx plan managed by OB -s/p fluid resuscitation. # Hyperkalemia: Patient was found to have potassium 7.0 without EKG changes, 2/2 massive blood transfusion, now resolved. -s/p calcium gluconate, insulin/d50 #Type I DM vs Gestational DM? -SSI with hypoglycemic protocol -FSBS AC&HS -Consistent carbohydrate diet DVT ppx: TEDs/SCDs Medicine will sign off at this time. VS,Fishbone, I+O VS, Fishbone, I+O Laboratory Tests 04/09/20 09:07 04/09/20 14:10 04/10/20 07:12 Vital Signs Date Time Temp Pulse Resp B/P (MAP) Pulse Ox O2 Delivery O2 Flow Rate FiO2 04/10/20 07:58 20 04/10/20 06:20 97.5 79 113/69 (84) 100 Room Air 04/08/20 08:00 10.0 I&O- Last 24 Hours up to 6 AM 04/10/20 06:00 Intake Total 2690 ml Output Total 2575 ml Balance 115 ml KELY GOMEZ MD Apr 10, 2020 09:03
[2020-04-10] MEDS ORDERED: IBUPROFEN 800 MG TAB PO PRN (12:30)
--- NOTE | 2020-04-10 14:40 | IPNPDOC ---
Progress Note Date of Service: Apr 10, 2020 Day#: 3 Progress Note PPD 3/POD 2 Subjective: Roberta is a 29yo J04mmyB0,0,13,5 s/p complicated by hemorrhage caused by large intra-cavitary fibroid necessitating life-saving abdominal hysterectomy. She required 9 units of pRBCs transfusion which caused hyperkalemia, for which she was transferred to ICU for management in conjunction with the medicine team. She received glucagon and insulin and her hyperkalemia quickly corrected. She is doing very well. Her pain is well controlled. She is ambulating without lightheadedness/dizziness. She is tolerating her consistent carb diet, no nausea/vomiting. Glucose has been well controlled without need for insulin. Oro removed yesterday and since then no issues voiding, can start the stream and fully empty bladder. Scant vaginal bleeding. Baby is in [place] N[facility]. Patient's history is significant for pre-gestational diabetes and obesity. OBJECTIVE: VITAL SIGNS: Within normal limits, afebrile. Alert and oriented times three. Patient is conversant and in good spirits. Abdomen: Soft, appropriately tender to palpation without rebound/guarding. Optifoam dressing covering pfannenstiel incision is clean/dry/intact with no strike-through Extremities: no pain with palpation of calves Labs: 04/09 0210: H/H 6.5/20.6 04/09 0900: H/H 9.1/28.4, plt 163 Coags wnl Na 140, K 3.7, Cl 111, HCO3 22, BUN 8, creat 0.72, gluc 118 blood cultures negative x2 04/10: H/H 8.8/27, K 4.1, creat 0.56 ASSESSMENT: Roberta is a 29yo D60pchD4,0,13,5 s/p complicated by hemorrhage caused by large intra-cavitary fibroid necessitating life-saving abdominal hysterectomy. She required 9 units of pRBCs transfusion which caused hyperkalemia, for which she was transferred to ICU for management in conjunction with the medicine team. She received glucagon and insulin and her hyperkalemia quickly corrected. The remainder of her post-operative course has been uneventful and she remains hemodynamically stable with no evidence of infection. She highly desires discharge today so she can be with baby in [place]. PLAN: Discharge home Continue diabetic diet, but based on fingersticks she does not need to continue insulin at home. She will need 2hr glucose test 12 weeks PP. Encouraged ambulation and use of IS Percocet and motrin for pain, prn Patient to call clinic for 2wk incision check with Dr. Silverman Discussed return precautions at length: fevers/chills, increasing abdominal pain, heavy vaginal bleeding, signs of wound infection such as pus/redness, redness/pain of breast or anything else she finds concerning Vaginal rest and no heavy lifting 6 weeks Helen Terry MD VS, I&O, 24H, Fishbone Vital Signs/I&O Vital Signs Date Time Temp Pulse Resp B/P (MAP) Pulse Ox O2 Delivery O2 Flow Rate FiO2 04/10/20 10:03 98.4 90 16 124/72 (89) 98 Room Air 04/08/20 08:00 10.0 I&O- Last 24 Hours up to 6 AM 04/10/20 06:00 Intake Total 3140 ml Output Total 2575 ml Balance 565 ml Laboratory Data 24H LABS Laboratory Tests 2 04/09/20 15:20: Bedside Glucose (Misc Panel) 86 04/09/20 17:27: Bedside Glucose (Misc Panel) 114H 04/09/20 21:13: Bedside Glucose (Misc Panel) 87 04/10/20 06:34: Bedside Glucose (Misc Panel) 61L 04/10/20 07:12: Nucleated Red Blood Cells % (auto) 0.0, Anion Gap 5L, Glomerular Filtration Rate > 60.0, Calcium Level 7.3L 04/10/20 10:12: Bedside Glucose (Misc Panel) 101 CBC/BMP Laboratory Tests 04/10/20 07:12 Microbiology Microbiology 04/08/20 Blood Culture - Preliminary, Resulted No Growth after 48 hours. All Specime... 04/08/20 Blood Culture - Preliminary, Resulted No Growth after 48 hours. All Specime... Helen Terry MD Apr 10, 2020 14:40
--- NOTE | 2020-04-10 14:45 | DS.PDOC ---
Discharge Summary General Date of Admission Apr 07, 2020 at 07:32 Date of Discharge Apr 10, 2020 Discharge Summary PROCEDURES PERFORMED DURING STAY: spontaneous vaginal delivery, abdominal hysterectomy, transfusion of 9 units pRBCs, central line placement and removal ADMITTING DIAGNOSES: 1. Induction of labor at term 2. Pre-gestational diabetes 3. Obesity DISCHARGE DIAGNOSES: 1. Induction of labor at term 2. Pre-gestational diabetes 3. Obesity 4. Large intra-cavitary fibroid causing post- hemorrhage necessitating transfusion of 9 units pRBCs after hysterectomy 5. Post-transfusion hyperkalemia, corrected COMPLICATIONS/CHIEF COMPLAINT: Induction. HISTORY OF PRESENT ILLNESS/HOSPITAL COURSE: Roberta is a 29yo Q86hmsD5,0,13,5 s/p complicated by hemorrhage caused by large intra-cavitary fibroid necessitating life-saving abdominal hysterectomy. She required 9 units of pRBCs transfusion which caused hyperkalemia, for which she was transferred to ICU for management in conjunction with the medicine team. She received glucagon and insulin and her hyperkalemia quickly corrected. The remainder of her post-operative course has been uneventful and she remains hemodynamically stable with no evidence of infection. She highly desires discharge today so she can be with baby in [place]. DISCHARGE MEDICATIONS: Please see below. ALLERGIES: Please see below. PHYSICAL EXAMINATION ON DISCHARGE: 04/09 0210: H/H 6.5/20.6 04/09 0900: H/H 9.1/28.4, plt 163 Coags wnl Na 140, K 3.7, Cl 111, HCO3 22, BUN 8, creat 0.72, gluc 118 blood cultures negative x2 04/10: H/H 8.8/27, K 4.1, creat 0.56 LABORATORY DATA: Please see below. DISPOSITION: home DISCHARGE PLAN/INSTRUCTIONS: Discharge home Continue diabetic diet, but based on fingersticks she does not need to continue insulin at home. She will need 2hr glucose test 12 weeks PP. Encouraged ambulation and use of IS Percocet and motrin for pain, prn Patient to call clinic for 2wk incision check with Dr. Silverman Discussed return precautions at length: fevers/chills, increasing abdominal pain, heavy vaginal bleeding, signs of wound infection such as pus/redness, redness/pain of breast or anything else she finds concerning Vaginal rest and no heavy lifting 6 weeks DISCHARGE CONDITION: Stable TIME SPENT ON DISCHARGE: Greater than 20 minutes. Helen Terry MD Vital Signs/I&Os Vital Signs Date Time Temp Pulse Resp B/P (MAP) Pulse Ox O2 Delivery O2 Flow Rate FiO2 04/10/20 10:03 98.4 90 16 124/72 (89) 98 Room Air 04/08/20 08:00 10.0 I&O- Last 24 Hours up to 6 AM 04/10/20 06:00 Intake Total 3140 ml Output Total 2575 ml Balance 565 ml Laboratory Data Labs 24H Laboratory Tests 2 04/09/20 15:20: Bedside Glucose (Misc Panel) 86 04/09/20 17:27: Bedside Glucose (Misc Panel) 114H 04/09/20 21:13: Bedside Glucose (Misc Panel) 87 04/10/20 06:34: Bedside Glucose (Misc Panel) 61L 04/10/20 07:12: Nucleated Red Blood Cells % (auto) 0.0, Anion Gap 5L, Glomerular Filtration Rate > 60.0, Calcium Level 7.3L 04/10/20 10:12: Bedside Glucose (Misc Panel) 101 CBC/BMP Laboratory Tests 04/10/20 07:12 FSBS Laboratory Tests Test 04/09/20 15:20 04/09/20 17:27 04/09/20 21:13 04/10/20 06:34 Range/Units Bedside Glucose (Misc Panel) 86 114 87 61 70-105 MG/DL Test 04/10/20 10:12 Range/Units Bedside Glucose (Misc Panel) 101 70-105 MG/DL Microbiology Microbiology 04/08/20 Blood Culture - Preliminary, Resulted No Growth after 48 hours. All Specime... 04/08/20 Blood Culture - Preliminary, Resulted No Growth after 48 hours. All Specime... Discharge Medications Scheduled Prenat 115/Iron Fum/Folic/Dss ( 19 Tablet) 1 Each Tablet, 1 TAB PO DAILY, (Reported) Allergies Coded Allergies: No Known Allergies (Unverified , 03/21/20) Helen Terry MD Apr 10, 2020 14:45
--- NOTE | 2020-04-11 11:42 | CCN ---
DATE: 04/09/2020 SUBJECTIVE: Patient was seen and examined this morning during bedside rounds. Yesterday afternoon, the patient required one unit packed red blood cells (PRBC) transfusion and overnight an additional two units of PRBC was ordered with the third unit hanging currently at the bedside. This will be a total of 9 units of PRBC since her admission. Patient does have some abdominal pain, but it is controlled with pain medications. She states her breathing is improved today, and she is not having as much shortness of breath. She denies any significant coughing. She is more awake and alert. She denies any chest pain. Has not had any fevers overnight. OBJECTIVE: VITAL SIGNS: Temperature 97.5, pulse 68, respirations 13, blood pressure 108/63, O2 saturation 96% on room air. In 11 liters, out 5 liters, net positive 6.3 liters. GENERAL: Patient is lying in the bed awake, alert, and oriented. HEENT: Normocephalic, atraumatic. Pupils reactive to light. Mucous membranes noted. NECK: Supple. Trachea is midline. Unable to assess jugular venous distention due to short and thick neck. CARDIOVASCULAR: Regular rate and rhythm. Normal S1, S2. No murmurs auscultated. RESPIRATORY: Diminished breath sounds bilaterally. No rhonchi or wheezes noted. Rare crackles at the bases. ABDOMEN: Soft, mildly distended. Some mild tenderness in the lower abdominal quadrants. The patient has a dressing in place in the lower abdomen from her hysterectomy. She does have some bloody vaginal discharge. EXTREMITIES: No significant lower extremity edema bilaterally. LABORATORY DATA: WBC 14.5, hemoglobin 6.7, platelets 274,000. Chemistry pending. Lactic acid yesterday trended down to 1.7. ASSESSMENT/PLAN: The patient is a 29-year-old female with history of diabetes who presented with hemorrhage secondary to uterine fibroid and is status post hysterectomy. She received multiple units of packed red blood cells (PRBC) transfusion and developed hyperkalemia and was transferred to the intensive care unit (ICU) for further monitoring. She was initially hypotensive in the intensive care unit (ICU) and hypothermic, but did respond to intravenous (IV) fluid boluses. Hypotension secondary to hemorrhage with hypovolemia, as well as concern for possible sepsis given increased leukocytosis and hypothermia. - Patients lactic acid has trended down. Her blood pressure has responded with transfusions and fluids. - Continue patient with ceftriaxone for broad-spectrum antibiotic. Methicillin- resistant Staphylococcus aureus (MRSA) screen was negative. Would check a procalcitonin tomorrow to tree surgeon helper in de-escalation and discontinuation of antibiotic. - Central venous catheter placed 04/08/2020 for intravenous (IV) access. - Discontinue normal saline. Patient does have hypoalbuminemia. If she is hypotensive, would transfuse PRBC and if needed, additional volume resuscitation would consider albumin. hemorrhage now status post 9 units of packed red blood cells (PRBC). - continue trending hemoglobin and hematocrit and transfuse as needed. Given her multiple transfusions, would check a repeat coagulation panel today with fibrinogen to continue to monitor for consumptive coagulopathy and disseminated intravascular coagulation (DIC). Hypocalcemia in the setting of packed red blood cells (PRBC) transfusion with the citrate. Would continue to monitor ionized calcium and replete as needed. Hyperkalemia in the setting of transfusion has resolved. Will continue to monitor and treat as needed. Continue deep vein thrombosis (DVT) with sequential compression devices (SCDs). As the patient continues to have some bleeding, I would hold off on Lovenox, but would transition as soon as appropriate as the patient is prothrombotic in her state. Hypoxia, improved. The patient does have atelectasis on chest x-ray and low lung volumes. She appears to be taking deeper breaths today and has been using incentive spirometer, although not frequently. Will encourage continued incentive spirometer use. Full code. CRITICAL CARE TIME: Not including procedures approximately 40 minutes. Please do not hesitate to call for any further questions or concerns. MTDD
--- NOTE | 2020-04-11 11:57 | RO ---
DATE OF OPERATION: 04/08/2020 PROCEDURE: Central line procedure. INDICATION: Venous access. PREPROCEDURE DIAGNOSIS: Hemorrhagic shock. POSTPROCEDURE DIAGNOSIS: Hemorrhagic shock. ATTENDING PHYSICIAN: Dr. Arzola. CONSENT: Consent was obtained from the patient prior to the procedure. Indication, risks and benefits were explained at length. PROCEDURE SUMMARY: The central line administration form was completed by independent observer. A time out was performed. Full sterile technique was maintained throughout the procedure including surgical cap, mask, protective eyewear, full gown and sterile gloves. The patient was placed in Trendelenburg position. The right neck region was prepped using Chlorhexidine scrub and draped in sterile fashion using full drape and sterile probe cover employed. The right internal jugular vein was identified using ultrasound. Anesthesia was achieved to vein using 1% Lidocaine. Using realtime out of plane ultrasound guidance the introducing needle was inserted into the internal jugular vein under direct ultrasound visualization. Venous blood was withdrawn. The syringe was removed and guidewire was advanced into the introducer needle. The introducer needle was removed over the guidewire. A small incision was made at the skin surface with a scalpel and a dilator was exchanged over the guidewire. After appropriate dilation was obtained the dilator was exchanged with the wire for a triple lumen central venous catheter. The wire was removed and the catheter was sutured in place at 18 cm. A sterile Chlorhexidine impregnated dressing was placed over the catheter at the insertion site. The patient tolerated the procedure without any hemodynamic compromise. At time of procedure completion all ports aspirated and flushed properly. Postprocedure chest x-ray showed the central line in satisfactory position with no pneumothorax. Estimated blood loss is less than 2 mL. MTDD
== END 2020-04-10 15:00 | disposition home or self-care (01) | DRG 768 ==
LOC: M LDI 07:32 → M ICU 04-08 07:57 → M OBS 04-09 11:32
PROVIDERS: ADMIT Specialist; ATTEND Specialist
PROC: 10E0XZZ Delivery of Products of Conception, External Approach (ICD-10-PCS; principal; 2020-04-07)
PROC: 3E033VJ Introduction of Other Hormone into Peripheral Vein, Percutaneous Approach (ICD-10-PCS; 2020-04-07)
PROC: 30233N1 Transfusion of Nonautologous Red Blood Cells into Peripheral Vein, Percutaneous Approach (ICD-10-PCS; 2020-04-07)
PROC: 0UT90ZZ Resection of Uterus, Open Approach (ICD-10-PCS; 2020-04-08)
DX: O24.02 Pre-existing type 1 diabetes mellitus, in childbirth (principal); Z37.0 Single live birth; D62 Acute posthemorrhagic anemia; O72.1 Other immediate postpartum hemorrhage; J98.11 Atelectasis; Z3A.39 39 weeks gestation of pregnancy; Z79.4 Long term (current) use of insulin; O69.81X0 Labor and delivery complicated by cord around neck, without compression, not applicable or unspecified; D25.0 Submucous leiomyoma of uterus; O34.13 Maternal care for benign tumor of corpus uteri, third trimester; E87.5 Hyperkalemia; R09.02 Hypoxemia; O99.03 Anemia complicating the puerperium; O99.285 Endocrine, nutritional and metabolic diseases complicating the puerperium; O99.53 Diseases of the respiratory system complicating the puerperium; O99.214 Obesity complicating childbirth; E66.9 Obesity, unspecified